=== PATIENT | female | born 1945 | race Caucasian/White ===

== ENCOUNTER → 2016-07-28 | Outpatient (CLI) | payer OTHER ==
[~2016-07-28] MED LIST: IOPAMIDOL (ISOVUE 370) 100 ML BTL IV ONE
--- NOTE | 2016-07-28 17:44 | CT ---
CT Cardiac Angiogram With Left Ventricular Ejection Fraction 1405 hours History: History of septal myomectomy and mitral valve repair. Hypertrophic cardiomyopathy.. Technique: Postprocessing was performed. Volume rendered images were reviewed and vessel analysis was performed of the coronary arteries. Dose reduction techniques were utilized. This is a repeat exam. No charge to the patient. Images were obtained on a [address] scanner. With the IV administration of 85 mL Isovue-370 IV contrast, serial axial CT images were obtained through the heart utilizing th in slice technique and retrospective gating. Full [id number] reconstructed images were used for e valuation of the extracardiac tissues. At the time of the CT, the heart rate was 75-80 bpm. Gated im aging of the heart during cardiac cycle was reconstructed. CT Cardiac Angiogram: The overall quality of the study is very good. There is adequate visualization of the coronary arteries. The patient has a right dominant system wit h normal origins of the coronary arteries. The patient has had previous coronary artery bypass graft to a diagonal branch as well as PAYTON anastomosis to the distal LAD that appear to be patent. Left main: No calcified or soft plaque is seen and there is no stenosis. Proximal LAD and first diagonal branch: There is calcified plaque involving the proximal LAD with mil d stenosis suspected measuring less than 50%. The diagonal branch is patent. Mid-distal LAD, D2 and D3 branches: Calcified plaque is also seen mid LAD with mild stenosis measur ing less than 50%. The diagonal branches appear to be patent. The anastomosis from the coronary arter y bypass graft to diagonal branch appears to be patent. The distal PAYTON graft to the distal LAD is pa tent as well. Left circumflex and its OM branches: The left circumflex artery is very small caliber. Small obtuse marginal branch is also seen. Right coronary artery and its branches: No calcified or soft plaque is seen and there is no stenosis . The distal right coronary artery continues into the PDA and posterior lateral branch. These are wid keven patent. Cardiac Function: The left ventricular ejection fraction was calculated to be approximately 79%. Str aneta-volume was calculated to be 63 mL. There is moderate left ventricular hypertrophy that is more pr ominent involving the interventricular septum measuring 25 mm at end diastole. There is concentric th ickening of the left ventricular wall during systole. Cardiac Morphology: Cardiac pacemaker leads are present in the right atrium and right ventricle. The right atrium is normal. The right ventricle is normal. The left atrium is moderately enlarged travis uring about 5.4 x 6.8 cm in AP and transverse dimensions. The left atrial appendage is normal. Mitral annulus calcification is noted. There is apical thinning of the left ventricle. Moderate slightly asymmetric left ventricular hypertrophy is noted more prominent thickening at the interventricular se ptum. The aortic valve is normal in appearance. Extracardiac soft tissues: There is no hilar or mediastinal lymphadenopathy. The pericardium is hugo l. No underlying pulmonary nodules are seen. There are a few fibrotic streaks at the left base. The a scending portion of the aortic arch is upper limits normal in size measuring about 3.8 cm. Impression: 1. Hypertrophic cardiomyopathy that is mildly asymmetric with the greatest thickening at the interven tricular septum measuring 2.5 cm during end diastole. 2. Left ventricular ejection fraction calculated to be 79%. 3. Mild to moderate arteriosclerotic calcified plaque involving the proximal to mid LAD with only mil d stenosis suspected. 4. Coronary artery bypass graft from the aorta to the diagonal branch is patent as well as PAYTON graft to the distal LAD. 5. Dominant right coronary artery with prominent PDA and posterior lateral branch distally. All measurements of stenoses are based on NASCET criteria.
== END ==
LOC: FIMAGING 13:21
PROVIDERS: ATTEND Thoracic Surgery (Cardiothoracic Vascular Surgery)
DX: I42.2 Other hypertrophic cardiomyopathy (principal); Z95.0 Presence of cardiac pacemaker; I25.10 Atherosclerotic heart disease of native coronary artery without angina pectoris; Z95.1 Presence of aortocoronary bypass graft
CPT/HCPCS: 71275; Q9967

== ENCOUNTER 2016-08-14 08:08 | Inpatient (IN) | payer OTHER ==
[2016-08-14] MEDS ORDERED: DIAZEPAM 5 MG TAB PO ONE (08:13)
[2016-08-14] MEDS ORDERED: ASPIRIN EC 325 MG TAB PO ONE (08:13)
[2016-08-14] MEDS ORDERED: diphenhydrAMINE 25 MG CAP PO ONE ×2 (08:13→09:23)
[2016-08-14] MEDS ORDERED: FAMOTIDINE 20 MG TAB PO ONE (08:13)
[2016-08-14] MEDS ORDERED: NS 1,000 ML IV ONE (08:13)
--- NOTE | 2016-08-14 08:42 | CPEKG ---
Heart Rate: 71 RR Interval: 845 P-R Interval: 166 QRSD Interval: 150 QT Interval: 496 QTC Interval: 540 P [place]: 2 QRS [place]: -20 T Wave [place]: 160 EKG Severity - ABNORMAL ECG - EKG Impression: ATRIAL-PACED COMPLEXES EKG Impression: LEFT ATRIAL ABNORMALITY EKG Impression: LEFT BUNDLE BRANCH BLOCK EKG Impression: VOLTAGE CRITERIA FOR LVH CONSIDER SEPTAL HYPERTROPHY Electronically Signed By: Darvin Sprague 14-Aug-2016 19:24:12
[2016-08-14] MEDS ORDERED: fentaNYL 100 MCG/2 ML INJ ONE (09:04)
[2016-08-14] MEDS ORDERED: LIDOCAINE 1% 30 ML SDV ONE (09:04)
[2016-08-14] MEDS ORDERED: VERAPAMIL 5 MG/2 ML VIAL ONE (09:04)
[2016-08-14] MEDS ORDERED: MIDAZOLAM 2 MG/2 ML VIAL ONE (09:04)
[2016-08-14] MEDS ORDERED: HEPARIN 10,000 UNIT/10 ML MDV ONE (09:04)
[2016-08-14] MEDS ORDERED: IOPAMIDOL (ISOVUE-370) 150 ML BTL IV ONE ×2 (09:04→10:15)
[2016-08-14 09:22] LABS: % IMMATURE GRANULYOCYTES 0.3 % (0.0-1.1); ABSOLUTE IMMATURE GRANULOCYTES 0.02 10^3/uL (0.00-0.10); ADD DIFF? NO; ADD MORPH? NO; ADD SCAN? NO; ATYPICAL LYMPHOCYTE FLAG 10 (0-99); FRAGMENT RBC FLAG 0 (0-99); HEMATOCRIT 42.9 % (38.0-47.0); HEMOGLOBIN 14.8 g/dL (12.6-16.3); LEFT SHIFT FLG 0 (0-99); LIPEMIA HEMOLYSIS FLAG 90 (0-99); MEAN CELL HEMOGLOBIN 31.3 pg (27.9-34.1); MEAN CELL HEMOGLOBIN CONCENTR. 34.5 g/dL (32.4-36.7); MEAN CELL VOLUME 90.7 fL (81.5-99.8); MEAN PLATELET VOLUME 10.4 fL (8.7-11.7); PLATELET CLUMPS FLAG 0 (0-99); PLATELET COUNT 230 10^3/uL (150-400); RED BLOOD CELL COUNT 4.73 10^6/uL (4.18-5.33); RED CELL DISTRIBUTION WIDTH 13.1 % (11.5-15.2)
[2016-08-14] MEDS ORDERED: FAMOTIDINE 20 MG TAB ONE (09:23)
[2016-08-14] MEDS ORDERED: DIAZEPAM 5 MG TAB ONE (09:23)
[2016-08-14 09:28] LABS: INR 1.13 (0.83-1.16); PROTIME(PATIENT) 14.4 SEC (12.0-15.0)
[2016-08-14 09:38] LABS: ANION GAP 12 mEq/L (8-16); CALCIUM 9.6 mg/dL (8.5-10.4); CARBON DIOXIDE 26 mEq/l (22-31); CHLORIDE 106 mEq/L (97-110); CHOLESTEROL 179 mg/dL (140-220); CHOLESTEROL/HDL RATIO 3.09 RATIO (1.00-4.44); CREATININE 0.8 mg/dL (0.6-1.0); GLOMERULAR FILTRATION RATE > 60; GLUCOSE 90 mg/dL (70-100); HIGH DENSITY LIPOPROTEIN 58 mg/dL (40-85); LDL/HDL RATIO 1.76 RATIO (1.00-3.22); LOW DENSITY LIPOPROTEIN 102 mg/dL (80-100); MAGNESIUM 2.1 mg/dL (1.6-2.3); NON-HIGH DENSITY LIPOPROTEIN 121 mg/dL (90-129); SODIUM 144 mEq/L (134-144); TRIGLYCERIDE 99 mg/dL (35-135); VERY LOW DENSITY LIPOPROTEINS 19 mg/dL (8-25)
[2016-08-14] MEDS ORDERED: ATROPINE SULFATE 1 MG/10 ML SYR ONE (10:19)
--- NOTE | 2016-08-14 11:27 | PDDXCAT ---
Diagnostic Cath Note - . Date: 08/14/16 Intervention: None C 40A Crew Chief: Dr. Darvin Sprague Indication: Diagnostic catheterization pre MVR, pre septal resection *Procedure Access: right groin Procedure: left heart catheterization, coronary angiography, left ventriculogram , right heart catheterization *Materials Left Heart Cath size: 5F Left Heart Cath materials: JL3.5, JR4.0, OBI, pigtail Right Heart Cath size: 5F Right Heart Cath materials: PWP catheter *Findings-Left Heart Catheterization LM: 7 mm in size. Bifurcates into an LAD and circumflex system. LAD: 85% proximal LAD lesion with evidence of competitive flow in the distal LAD consistent with a patent PAYTON graph. There is an 90% diagonal 2 lesion with competitive flow in the distal vessel consistent with a patent rSVG. There is evidence of systolic obstruction of septal perforators. LCX: Small (<2mm in size) with DAVID III flow throughout. No evidence of flow- limiting disease. There is a high obtuse marginal branch with maximal luminal stenosis of 30%. RCA: Dominant, ~6 mm in size. There is a large acute marginal branch. There is no evidence of flow-limiting disease with DAVID III flow throughout. rSVG: The rSVG to the diagonal 2 is widely patent with DAVID III flow. Maximal luminal stenosis of 30% (ostial) with DAVID III flow. PAYTON: The PAYTON to the distal LAD is widely patent with DAVID III flow. EDP: 26 mmHg LVEF: 70% Wall motion: Moderate to severe (3+ MR). The visualized protion of the thoracic aorta appears enlarged and the upper imits of norm,al in size. There was no evidence of aneurysm or dissection. The LV is hypercontractile with near cavity obliteration. Upon pullback there is a dagger shaped pattern with a peak systolic pressure of 199 mmHg and an aortic pressure of 118 mmHg (peak to peak of 81 mmHg accross the LVOT). The mean gradient is 47.9 mmHg. *Findings-Right Heart Catheterization RA: 15/16/13 mmHg RV: 47/10/15 mmHg PA: 43/25/33 mmHg PAOP: 25/22/21 mmHg; There are large V waves consistent with severe MR. AO: 101/65/85 mmHg CO: 5.4 L/min CI: 3.5 L/min/m^2 *Summary Complications: None Estimated blood loss: <50ml Closure method: Angioseal Assessment: There is severe outflow tract obstruction consistent with HOCM and associated MR. [place] vessel coronary artery disease as previously described with widely patent rSVG to D2 and widely patent PAYTON to the distal LAD (DAVID III flow) Patient Problems: Problems Problem Status Diagnosed Coronary artery disease Acute HOCM (hypertrophic obstructive cardiomyopathy) Acute Bradycardia Acute Left bundle branch block (LBBB) Acute Near syncope Acute - ICD10 Problem Qualifiers (1) Coronary artery disease Qualifiers: Coronary Disease-Associated Artery/Lesion type: [place] artery [place] vs. transplanted heart: [place] heart (2) HOCM (hypertrophic obstructive cardiomyopathy)
[2016-08-14] MEDS ORDERED: ATROPINE SULFATE 1 MG/10 ML SYR IVP PRN (11:46)
[2016-08-14] MEDS ORDERED: ONDANSETRON DISINTEGRATING 4 MG TAB PO PRN (11:46)
[2016-08-14] MEDS ORDERED: NS 1,000 ML IV SCH (12:00)
[2016-08-14] MEDS ORDERED: ALBUTEROL 60 PUFFS/8 GM MDI IH PRN (12:01)
--- NOTE | 2016-08-14 13:14 | US ---
Bilateral Duplex/Doppler Carotid Sonography Clinical Indications: Preop mitral valve replacement, mitral valve disease. Technique: The cervical portions of the carotid and vertebral arteries were imaged and interrogated by color and pulsed Duplex/Doppler. Spectral analysis was performed. Findings: Right Carotid: Right CCA peak systolic velocity = 72 cm/sec Right ICA peak systolic velocity = 68 cm/sec Right ECA peak systolic velocity = 71 cm/sec Right ICA/CCA systolic velocity ratio = 0.94 No flow-limiting carotid stenosis. Mild calcified plaque involving the right carotid bulb and proxima l right internal carotid artery. Left Carotid: Left CCA peak systolic velocity = 78 cm/sec Left ICA peak systolic velocity = 68 cm/sec Left ECA peak systolic velocity = 69 cm/sec Left ICA/CCA systolic velocity ratio = 0.87 No flow-limiting carotid stenosis. Mild calcified plaque involving the left carotid bulb and proximal left internal carotid artery. Vertebral Arteries: Antegrade flow is shown by pulsed Doppler of each vertebral artery. Impression: 1. No evidence of flow-limiting carotid stenosis. 2. Mild atherosclerotic plaque bilateral carotid bulbs. 3. Bilateral vertebral arteries are patent with antegrade flow. Measurement of carotid stenosis is based on velocity parameters that correlate the residual internal carotid diameter with [place] Symptomatic Carotid Endarterectomy Trial (NASCET) based stenosis levels.
--- NOTE | 2016-08-14 14:22 | PDGENHP ---
History and Physical - Chief Complaint Dyspnea, light-headedness - History of Present Illness Pt previously seen in clinic with HOCM, LVOT obstruction, GABRIEL of the mitral valve and severe-moderate MR with preserved LV function. In January 2012 pt had a CABG x2 (PAYTON-LAD, SVG-D2), septal myectomy, and MV repair with Dr. Moses Moran. Pt is here today for [facility] in preparation for a redo septal myectomy and possible redo MV repair vs replacement. The C today showed patent grafts without new significant obstructions. Since last seen, the pt states her symptoms have not worsened. She still c/o light-headedness, dyspnea, and chest pain. She denies LE edema. History Information - Allergies/Home Medication List Allergies/Adverse Reactions: amoxicillin [Amoxicillin] Allergy (Intermediate, Verified 08/12/16 15:17) Hives cefaclor [From Ceclor] Allergy (Intermediate, Verified 08/12/16 15:17) Hives levofloxacin [From Levaquin] Allergy (Intermediate, Verified 08/12/16 15:17) Rash Sulfa (Sulfonamide Antibiotics) Allergy (Intermediate, Verified 08/12/16 15:17) Rash Home Medications: Albuterol [Proventil Inhaler HFA (*)] 1 puffs IH Q4 PRN 02/01/12 [Last Taken ] Aspirin [Aspirin 81mg (*)] 81 mg PO HS 02/01/12 [Last Taken 08/13/16] Fiber Cap 1 cap PO DAILY 02/01/12 [Last Taken 08/13/16] Loratadine [Claritin 10 mg] 10 mg PO DAILY 02/01/12 [Last Taken 08/13/16] Atorvastatin Calcium [Lipitor 40 mg (*)] 40 mg PO DAILY 11/19/15 [Last Taken ] Calcium Carb W/Vit D [Calcium Carb W/Vit D 500/200 (*)] 500 mg PO BID 11/19/15 [ Last Taken 08/13/16] Latanoprost 0.005% [Xalatan 0.005% (*)] 1 drops EACHEYE HS 11/19/15 [Last Taken 08/13/16] Metoprolol Tartrate [Lopressor 25 mg (*)] 25 mg PO BID 11/19/15 [Last Taken ] Multivitamins [Multivitamin (*)] 1 each PO BID 11/19/15 [Last Taken 08/13/16] Fluticasone/Vilanterol [Breo Ellipta 100-25 Mcg INH] 1 each IH DAILY 08/14/16 [ Last Taken 08/14/16] Timolol 0.5% [TIMOPTIC 0.5% (*)] 1 drops EACHEYE DAILY 08/14/16 [Last Taken ] I have personally reviewed and updated: medical history, social history, surgical history - Past Medical History asthma, coronary artery disease, cancer, glaucoma, hypertension, hyperlipidemia - Surgical History Reports: coronary bypass surgery (2012 (CABG x2)), mastectomy (Left (2000)), pacemaker/AICD (AV PPM (11/19/15 - Sabrina)) Additional surgical history: Septal myectomy, MV repair (2011 - Moran) - Social History Smoking Status: Never smoked Alcohol Use: None Review of Systems ROS: 10pt was reviewed & negative except for what was stated in HPI & below Constitutional: Reports: no symptoms EENMT: Reports: no symptoms Cardiac: Reports: chest pain, lightheadedness. Denies: palpitations Respiratory: Reports: orthopnea, shortness of breath Gastrointestinal: Reports: abdominal pain. Denies: vomitting, nausea Muscolosketal: Reports: no symptoms Skin: Reports: no symptoms Neurological: Reports: no symptoms Physical Exam Temp Pulse Resp BP Pulse Ox 36.4 C 67 26 H 101/64 91 L 08/14/16 13:34 08/14/16 13:34 08/14/16 13:34 08/14/16 13:34 08/14/16 13:34 Constitutional: no apparent distress, appears nourished, not in pain, obese Eyes: anicteric sclera Ears, Nose, Mouth, Throat: moist mucous membranes, hearing normal, ears appear normal Cardiovascular: regular rate and rhythym, systolic murmur Respiratory: no respiratory distress, no rales or rhonchi, clear to auscultation , respiratory distress Gastrointestinal: soft, non-tender abdomen, No distension Skin: warm, normal color, mottled, other (Well-healed sternotomy/right chest PPM site/Left mastectomy ) Musculoskeletal: full muscle strength Neurologic: AAOx3 Psychiatric: interacting appropriately, not anxious, not encephalopathic, thought process linear Lab Data & Imaging Review 08/14/16 08:50 08/14/16 08:50 WBC 7.39 10^3/uL (3.80-9.50) 08/14/16 08:50 RBC 4.73 10^6/uL (4.18-5.33) 08/14/16 08:50 Hgb 14.8 g/dL (12.6-16.3) 08/14/16 08:50 Hct 42.9 % (38.0-47.0) 08/14/16 08:50 MCV 90.7 fL (81.5-99.8) 08/14/16 08:50 MCH 31.3 pg (27.9-34.1) 08/14/16 08:50 MCHC 34.5 g/dL (32.4-36.7) 08/14/16 08:50 RDW 13.1 % (11.5-15.2) 08/14/16 08:50 Plt Count 230 10^3/uL (150-400) 08/14/16 08:50 MPV 10.4 fL (8.7-11.7) 08/14/16 08:50 Neut % (Auto) 56.3 % (39.3-74.2) 08/14/16 08:50 Lymph % (Auto) 33.6 % (15.0-45.0) 08/14/16 08:50 [place] % (Auto) 7.2 % (4.5-13.0) 08/14/16 08:50 Eos % (Auto) 1.8 % (0.6-7.6) 08/14/16 08:50 Baso % (Auto) 0.8 % (0.3-1.7) 08/14/16 08:50 Nucleat RBC Rel Count 0.0 % (0.0-0.2) 08/14/16 08:50 Absolute Neuts (auto) 4.17 10^3/uL (1.70-6.50) 08/14/16 08:50 Absolute Lymphs (auto) 2.48 10^3/uL (1.00-3.00) 08/14/16 08:50 Absolute Monos (auto) 0.53 10^3/uL (0.30-0.80) 08/14/16 08:50 Absolute Eos (auto) 0.13 10^3/uL (0.03-0.40) 08/14/16 08:50 Absolute Basos (auto) 0.06 10^3/uL (0.02-0.10) 08/14/16 08:50 Absolute Nucleated RBC 0.00 10^3/uL (0-0.01) 08/14/16 08:50 Immature Gran % 0.3 % (0.0-1.1) 08/14/16 08:50 Immature Gran # 0.02 10^3/uL (0.00-0.10) 08/14/16 08:50 PT 14.4 SEC (12.0-15.0) 08/14/16 08:50 INR 1.13 (0.83-1.16) 08/14/16 08:50 Sodium 144 mEq/L (134-144) 08/14/16 08:50 Potassium 4.0 mEq/L (3.5-5.2) 08/14/16 08:50 Chloride 106 mEq/L (97-110) 08/14/16 08:50 Carbon Dioxide 26 mEq/l (22-31) 08/14/16 08:50 Anion Gap 12 mEq/L (8-16) 08/14/16 08:50 BUN 20 mg/dL (7-23) 08/14/16 08:50 Creatinine 0.8 mg/dL (0.6-1.0) 08/14/16 08:50 Estimated GFR > 60 08/14/16 08:50 Glucose 90 mg/dL (70-100) 08/14/16 08:50 Calcium 9.6 mg/dL (8.5-10.4) 08/14/16 08:50 Magnesium 2.1 mg/dL (1.6-2.3) 08/14/16 08:50 Triglycerides 99 mg/dL (35-135) 08/14/16 08:50 Cholesterol 179 mg/dL (140-220) 08/14/16 08:50 Cholesterol Risk Factr 0.5 (0.2-1.0) 08/14/16 08:50 LDL Cholesterol, Calc 102 mg/dL (80-100) H 08/14/16 08:50 LDL Risk Factor 0.6 (0.2-1.0) 08/14/16 08:50 VLDL Cholesterol 19 mg/dL (8-25) 08/14/16 08:50 Non-HDL Cholesterol 121 mg/dL (90-129) 08/14/16 08:50 HDL Cholesterol 58 mg/dL (40-85) 08/14/16 08:50 LDL/HDL Ratio 1.76 RATIO (1.00-3.22) 08/14/16 08:50 Cholesterol/HDL Ratio 3.09 RATIO (1.00-4.44) 08/14/16 08:50 Patient ABO/Rh O NEGATIVE 08/14/16 08:50 Antibody Screen NEGATIVE 08/14/16 08:50 Visualized and Interpreted Chest x-ray results: Yes Chest X-Ray results: no infiltrate Assessment & Plan Assessment: 1. HOCM/GABRIEL/Moderate-severe MR Plan: Redo septal myectomy, redo MV repair vs replacement 08/15/16 at 7:[address] Rose - Pre-op orders to be placed - NPO past midnight - Pt seen with Dr. Rose
[2016-08-14] MEDS ORDERED: diphenhydrAMINE 25 MG CAP PO PRN (15:26)
[2016-08-14] MEDS ORDERED: ACETAMINOPHEN 325 MG TAB PO PRN (15:46)
[2016-08-14] MEDS: METOPROLOL TARTRATE 25 MG TAB PO SCH (20:21)
[2016-08-14] MEDS: MULTIVITAMINS 1 EACH TAB PO SCH (20:21)
[2016-08-14] MEDS: MUPIROCIN 2% 22 GM OINT NS SCH (20:24)
[2016-08-14] MEDS ORDERED: LATANOPROST 0.005% 2.5 ML OPHT DROPS EACHEYE SCH (21:00)
[2016-08-14] MEDS ORDERED: CHLORHEXIDINE GLUC HIBICLENS 118 ML BTL TP SCH (21:00)
[2016-08-14] MEDS ORDERED: ASPIRIN 81 MG CHEWABLE TAB PO SCH (21:00)
[2016-08-14] MEDS: CALCIUM CARB W/VIT D 500 MG TAB PO SCH (22:13)
[2016-08-14] MEDS: LATANOPROST 0.005% 2.5 ML OPHT DROPS EACHEYE SCH (22:44)
[2016-08-15] MEDS: METOPROLOL TARTRATE 25 MG TAB PO SCH ×2 (00:24→11:26)
[2016-08-15] MEDS ORDERED: NOREPINEPHRINE BITARTRATE 16 MG in NS 250 ML IV ONE (06:00)
[2016-08-15] MEDS ORDERED: AMINOCAPROIC ACID 5 GM/20 ML VIAL IV ONE (06:00)
[2016-08-15] MEDS ORDERED: CITRATE DEXTROSE SOLN 500 ML BAG MISC ONE (06:00)
[2016-08-15] MEDS ORDERED: VANCOMYCIN HCL/NORMAL SALINE 250 ML IV ONE (06:00)
[2016-08-15] MEDS ORDERED: SODIUM BICARBONATE 20 MEQ, LIDOCAINE 1% 10 ML in NORMOSOL-R 1,000 ML MISC ONE (06:00)
[2016-08-15] MEDS ORDERED: VANCOMYCIN PHARMACY TO DOSE MISC ONE (06:00)
[2016-08-15] MEDS ORDERED: MANNITOL 25% 12.5 GM/50 ML VIAL IV ONE (06:00)
[2016-08-15] MEDS ORDERED: PHENYLEPHRINE HCL 50 MG in NS 250 ML IV ONE (06:00)
[2016-08-15] MEDS ORDERED: INSULIN REGULAR HUMAN 100 UNIT in NS 100 ML IV ONE (06:00)
[2016-08-15] MEDS ORDERED: NS 1,000 ML IV ONE (06:00)
[2016-08-15] MEDS ORDERED: niCARdipine/NACL 200 ML IV SCH (06:00)
[2016-08-15 06:02] LABS: ANION GAP 9 mEq/L (8-16); CALCIUM 9.1 mg/dL (8.5-10.4); CARBON DIOXIDE 24 mEq/l (22-31); CHLORIDE 110 mEq/L (97-110); CREATININE 0.7 mg/dL (0.6-1.0); GLOMERULAR FILTRATION RATE > 60; GLUCOSE 89 mg/dL (70-100); POTASSIUM 3.9 mEq/L (3.5-5.2); SODIUM 143 mEq/L (134-144)
[2016-08-15] MEDS ORDERED: ALBUMIN 5% 250 ML BOTTLE IV ONE (06:18)
[2016-08-15] MEDS ORDERED: NA BICARBONATE 50 MEQ/50 ML VIAL ONE ×3 (06:18→22:09)
[2016-08-15] MEDS ORDERED: CALCIUM CHLORIDE 1 GM/10 ML INJ ONE (06:18)
[2016-08-15] MEDS ORDERED: MILRINONE/DEXTROSE/100 ML BAG IV ONE (06:18)
[2016-08-15] MEDS ORDERED: PROTAMINE SULFATE 50 MG/5 ML VIAL IVP ONE (06:18)
[2016-08-15] MEDS ORDERED: POTASSIUM Cl (KCl) 20 MEQ/50 ML BAG IV ONE (06:18)
[2016-08-15] MEDS ORDERED: LIDOCAINE 2% 100 MG/5 ML SYR IVP ONE (06:18)
[2016-08-15] MEDS ORDERED: AMINOCAPROIC ACID 5 GM/20 ML VIAL ONE (06:18)
[2016-08-15] MEDS ORDERED: DOPamine/DEXTROSE/250 ML BAG IV ONE (06:19)
[2016-08-15] MEDS ORDERED: ADENOSINE 6 MG/2 ML VIAL ONE (06:19)
[2016-08-15] MEDS ORDERED: AMIODARONE HCL 150 MG/3 ML VIAL ONE (06:19)
[2016-08-15] MEDS ORDERED: niCARdipine/NACL/200 ML BAG IV ONE (06:19)
[2016-08-15] MEDS ORDERED: methylPREDNISolone SOD SUCC 1 GM/8 ML VIAL ONE (06:19)
[2016-08-15] MEDS ORDERED: MAGNESIUM SULFATE 1 GM/2 ML VIAL ONE (06:19)
[2016-08-15] MEDS ORDERED: ceFAZolin 1 GM VIAL ONE (06:20)
[2016-08-15] MEDS ORDERED: HEPARIN 10,000 UNIT/10 ML MDV ONE (06:20)
[2016-08-15] MEDS ORDERED: VERAPAMIL 5 MG/2 ML VIAL ONE (06:47)
[2016-08-15] MEDS ORDERED: SKIN ADHESIVE (DERMABOND) 1 EACH TP ONE (06:47)
[2016-08-15] MEDS ORDERED: PAPAVERINE HCL 60 MG/2 ML SDV ONE (06:47)
[2016-08-15] MEDS ORDERED: CITRATE DEXTROSE SOLN 500 ML BAG ONE (06:53)
[2016-08-15] MEDS ORDERED: fentaNYL 250 MCG/5 ML INJ ONE ×2 (07:23)
[2016-08-15] MEDS ORDERED: PROPOFOL/EMULSION 500 MG/50 ML BOTTLE IV ONE (07:25)
[2016-08-15] MEDS ORDERED: MIDAZOLAM 2 MG/2 ML VIAL ONE (07:31)
[2016-08-15 08:52] LABS: HEMOGLOBIN A1C 5.4 % (4.0-6.0)
[2016-08-15] MEDS ORDERED: MAGNESIUM SULF 2 GM/WATER 50 ML BAG IV ONE (10:55)
[2016-08-15] MEDS: TIMOLOL 0.5% 15 ML OPHT.BTL EACHEYE SCH (11:25)
[2016-08-15] MEDS: CALCIUM CARB W/VIT D 500 MG TAB PO SCH (11:25)
[2016-08-15] MEDS: MUPIROCIN 2% 22 GM OINT NS SCH ×2 (11:26→22:30)
[2016-08-15] MEDS: MULTIVITAMINS 1 EACH TAB PO SCH (11:26)
[2016-08-15] MEDS ORDERED: MAGNESIUM SULF 2 GM/WATER 50 ML IV ONE (12:14)
[2016-08-15] MEDS ORDERED: fentaNYL 100 MCG/2 ML INJ IVP PRN (12:14)
[2016-08-15] MEDS ORDERED: PANTOPRAZOLE SODIUM 40 MG in NS 100 ML IV ONE (12:14)
[2016-08-15] MEDS ORDERED: SODIUM CL NASAL 45 ML BTL EACHNARE PRN (12:14)
[2016-08-15] MEDS ORDERED: MAGNESIUM HYDROXIDE 30 ML UDCUP PO PRN (12:14)
[2016-08-15] MEDS ORDERED: POLYETHYLENE GLYCOL 3350 17 GM PKT PO PRN (12:14)
[2016-08-15] MEDS ORDERED: CEPACOL LOZENGE PO PRN (12:14)
[2016-08-15] MEDS ORDERED: LACTULOSE 20 GM/30 ML UDCUP PO PRN (12:14)
[2016-08-15] MEDS ORDERED: BISACODYL 10 MG SUPP PR PRN (12:14)
[2016-08-15] MEDS ORDERED: MEPERIDINE 25 MG/ML SYR IVP PRN (12:14)
[2016-08-15] MEDS ORDERED: ACETAMINOPHEN 650 MG SUPP PR PRN (12:14)
[2016-08-15] MEDS ORDERED: D50W 25 GM/50 ML SYR IVP PRN (12:14)
[2016-08-15] MEDS ORDERED: NS 1,000 ML IV SCH (12:15)
[2016-08-15] MEDS ORDERED: SUGAMMADEX SODIUM 200 MG/2 ML VIAL IVP ONE (12:21)
[2016-08-15] MEDS ORDERED: PHENYLEPHRINE HCL 100 MCG/ML SYR ONE (12:28)
[2016-08-15] MEDS ORDERED: INSULIN REGULAR HUMAN 100 UNIT in NS 100 ML IV SCH (12:30)
--- NOTE | 2016-08-15 13:13 | POSTOPPROG ---
Post Op Note Date of Operation: 08/15/16 Surgeon: Satinder Rose Shell Coremaker: Shilo Anesthesiologist: Morris Anesthesia: GET(General Endotracheal) Pre-op Diagnosis: IHSS/GABRIEL/MR/ASHD Procedure: MVR #23 [place], reoperation Findings: rheumatic MV, not repairable Inf/Abcess present in the surg proc area at time of surgery?: No EBL: 50-100 Drains: Other (3 blakes)
[2016-08-15 13:36] LABS: BASE EXCESS -3.6 mEq/L (-2.5-2.5); BICARBONATE 23 mEq/L (22-26); MEASURED OXYGEN SATURATION 90 % (92-95); PCO2 47 mmHg (34-38); PO2 66 mmHg (65-75); TCO2 24 mEq/L (23-27)
[2016-08-15 13:37] LABS: END TIDAL CO2 40; O2 CONCENTRATIION 100 % (0-100); P/F RATIO 66 RATIO
[2016-08-15 13:38] LABS: PRESSURE SUPPORT 7
--- NOTE | 2016-08-15 13:52 | DX ---
Portable Chest 13:28 History: Post open heart surgery Comparison: November 20, 2015 Findings: There is new dense left lower lobe consolidation. There is no pneumothorax. Bilateral chest tubes, a mediastinal drain, and NG tube with tip in the stomach and an ET tube with tip in the proxi mal right mainstem bronchus are noted. A right chest wall pacer device and associated bipolar pacer l gem are in stable position. There is only a single median sternotomy wire present currently along wi CABG clips. Impression: ET tube in the proximal right mainstem bronchus with left lower lobe atelectasis. Results called to Dayana, the patient's ICU nurse at 13:49 p.m..
[2016-08-15] MEDS: ALBUMIN 5% 250 ML IV PRN ×3 (13:56→23:36)
[2016-08-15] MEDS: POTASSIUM Cl (KCl) 50 ML IV PRN ×2 (13:57→14:12)
[2016-08-15] MEDS: CHLORHEXIDINE GLUCONATE 15 ML UDL PO SCH ×2 (14:08→22:31)
[2016-08-15] MEDS ORDERED: DEXMEDETOMIDINE HCL 400 MCG in NS 100 ML IV SCH (14:30)
[2016-08-15] MEDS: FAMOTIDINE 20 MG/NACL 50 ML IV SCH (14:39)
--- NOTE | 2016-08-15 15:02 | DX ---
Portable Chest 14:42 History: Recheck ET tube placement Comparison: 13:28 earlier in the day Findings: The exam is end expiratory. I'm having a difficult time identifying the ET tube tip with ce sterling, but it is probably just above the ryan.. Impression: Recommend repeat examination in inspiration. Results called to Lacie the patient's ICU nurse, at 3 p.m.
[2016-08-15] MEDS: KETOROLAC 15 MG/1 ML SDV IVP SCH ×2 (15:57→17:22)
[2016-08-15] MEDS ORDERED: ALBUMIN 5% 250 ML IV ONE ×2 (16:00→23:30)
[2016-08-15 17:12] LABS: MEAN CELL HEMOGLOBIN 32.7 pg (27.9-34.1); MEAN CELL HEMOGLOBIN CONCENTR. 34.4 g/dL (32.4-36.7); MEAN CELL VOLUME 95.3 fL (81.5-99.8); RED BLOOD CELL COUNT 2.75 10^6/uL (4.18-5.33); RED CELL DISTRIBUTION WIDTH 13.6 % (11.5-15.2)
[2016-08-15 17:20] LABS: HEMATOCRIT 26.2 % (38.0-47.0)
[2016-08-15 17:26] LABS: INR 2.5 (0.83-1.16)
[2016-08-15 17:31] LABS: PROTIME(PATIENT) 27.3 SEC (12.0-15.0)
[2016-08-15] MEDS ORDERED: WARFARIN SODIUM 2.5 MG TAB PO ONE (18:00)
--- NOTE | 2016-08-15 19:01 | GOP ---
[f rep st] OPERATIVE REPORT DATE OF OPERATION: 08/15/2016 SURGEON: Satinder Rose DO ANIME ARTIST: Yoselin Lao. ANESTHESIOLOGIST: Jeremias Caceres. This patient had undergone previous septal myectomy and coronary bypass grafting; however, she was fo und to have a gradient greater than 100 mm across her left ventricular outflow tract due to significa nt GABRIEL. She was also noted to have at least moderate mitral insufficiency and was quite symptomatic with shortness of breath and syncope. She was consented for reoperation, septal myectomy with a [facility] er extensive workup preoperatively and potential mitral valve repair. Intraoperatively, transesophag eal echo revealed high gradient, greater than 100 mm across her outflow tract due to GABRIEL with a marke dly enlarged interventricular septum. However, very consistent severe concentric left ventricular hy pertrophy with an obliterative left ventricle at end systole. Because of this on the GERALDINE, I felt bhakti t resection of the septum, even extending it down into the apex would likely be inadequate to complet keven address her problem, although that was my initial plan. PREOPERATIVE DIAGNOSIS: Idiopathic hypertrophic subaortic stenosis with significant GABRIEL and moderate to severe mitral insufficiency. POSTOPERATIVE DIAGNOSIS: Idiopathic hypertrophic subaortic stenosis with significant GABRIEL and moderat e to severe mitral insufficiency with evidence of rheumatic heart disease with rheumatic mitral valve degeneration and mild aortic insufficiency. PROCEDURE PERFORMED: Reoperation mitral valve replacement with complete resection of the valve and s ubvalvular apparatus with a #23 [place] mechanical prosthesis. FINDINGS: DESCRIPTION OF PROCEDURE: She was brought to the operating room, intubated, monitoring lines were pl aced. She was prepped and draped in sterile classical manner. Repeat median sternotomy was performe d with an oscillating saw. Marsupialization of the right side of the heart and ascending aorta was p erformed without difficulty. The previous grafts were identified and protected. The mammary was iso lated in order to place a bulldog during the procedure. She was then heparinized, cannulated with bi caval cannulas and a single aortic cannula without difficulty. Cardiopulmonary bypass was begun, and antegrade cardioplegia was administered. Despite the mild aortic insufficiency, we were able to sophie id left ventricular distention with intermittent application of that. Because of her LVH, large volu mes of cardioplegia were administered as well as systemic cooling. The plan was to look at the yrn l valve and see what the pathology was, and if it was repairable, then proceed with septal myectomy a nd partial ring repair. I then opened the right atrium. Because of the fixed nature and her severe LVH, I felt that exposure of the mitral valve would be difficult, and she already had a dual-chamber pacemaker, so I placed caval tapes and 1 through the interatrial septum, closing an ASD as well. Thi s was extended on the dome of the left atrium. It had excellent exposure of the mitral valve, and th e left atrium was quite significantly enlarged. The mitral valve appeared to be classically rheumati c with fibrosis thickening and foreshortening of the leaflet edges, and represented a very small anul us. The subvalvular apparatus was partially fused, and the chordae were thickened. For that reason, I felt that given the nature of her concentric left ventricular hypertrophy and likely irreparable m itral valve, I decided to do a mitral valve replacement that we had discussed preoperatively with a l ow-profile mechanical valve. Coumadin had been discussed at length with the patient. She was agreea ble. We then resected the entire anterior and posterior leaflet. There was significant MAC in the p osterior anulus. I unroofed that, debrided the MAC from the anulus in order to safely place a mechan ical valve. This was extended down onto the posterior left ventricular wall as well. I then placed pledgeted mattress sutures through the remaining anulus, incorporating part of the left ventricular f ree wall where the calcium was removed, and placed that through a 23 mm mechanical [place] Beto valve. This seated without difficulty. The area was copiously irrigated for any calcium debris, and CO2 wa s infused. We then tested the valve under pressure, and there was no perivalvular leak. The left at rium and the interatrial septum was closed incorporating the ASD in the closure, and then the patient was placed in Trendelenburg. The bulldog was taken off the left internal mammary artery. The cross -clamp was removed with suction on the ascending aortic vent. Spontaneous cardiac activity was noted to resume. The patient did have the indwelling dual-chamber pacemaker. We intermittently aspirated through the LV apex for any remaining air. No suction was placed across the mechanical valve becaus e of its small size. The patient was restored in sinus rhythm. We kept her in Trendelenburg until n o further air was identified. She was then easily weaned from bypass. Transesophageal echo confirme d good ventricular function with continuous of changes in the left ventricle. The valve f unctioned perfectly with the expected central regurgitation due to washing of the leaflet hinge mecha nism, but nothing perivalvular. PAs remained normal. She required no inotropes for weaning. The he jaden was then reversed with protamine. The cannula was removed and oversewn. Two ventricular pacin g wires were placed. Two pleural and 1 mediastinal drain were placed. The thymic fat and pericardiu m were attempted to be approximated; however, there was no remaining pericardium from the prior opera tion over the right ventricle. The sternum was closed in standard fashion. The patient was returned to ICU in stable condition. /[id number]/MODL
[2016-08-15] MEDS: HYDROCODONE/APAP 5/325 TAB PO PRN ×2 (19:29→23:39)
[2016-08-15] MEDS: VANCOMYCIN HCL/NORMAL SALINE 250 ML IV SCH (19:30)
[2016-08-15] MEDS ORDERED: AMIODARONE HCL 100 ML IV ONE (22:00)
[2016-08-15 22:03] LABS: BASE EXCESS -7.4 mEq/L (-2.5-2.5); BICARBONATE 18 mEq/L (22-26); HEMOGLOBIN ABG 10.9 gm/dL (12.3-15.9); IONIZED CALCIUM 1.08 MMOL/L (1.12-1.30); MEASURED OXYGEN SATURATION 95 % (92-95); PCO2 37 mmHg (34-38); PO2 84 mmHg (65-75); SODIUM ABG 145 mEq/L (137-146); TCO2 19 mEq/L (23-27)
[2016-08-15] MEDS ORDERED: NOREPINEPHRINE BITARTRATE 4 MG in D5W 500 ML IV SCH (22:30)
[2016-08-15] MEDS ORDERED: NA BICARBONATE 50 MEQ/50 ML VIAL IV ONE ×2 (22:30→23:30)
[2016-08-15] MEDS: LATANOPROST 0.005% 2.5 ML OPHT DROPS EACHEYE SCH (22:31)
[2016-08-15 22:59] LABS: BASE EXCESS -5.9 mEq/L (-2.5-2.5); BICARBONATE 19 mEq/L (22-26); MEASURED OXYGEN SATURATION 92 % (92-95); PCO2 37 mmHg (34-38); PO2 66 mmHg (65-75); TCO2 20 mEq/L (23-27)
[2016-08-15] MEDS ORDERED: NOREPINEPHRINE BITARTRATE 16 MG in D5W 250 ML IV SCH (23:00)
[2016-08-16 01:15] LABS: BASE EXCESS -5.7 mEq/L (-2.5-2.5); BICARBONATE 19 mEq/L (22-26); MEASURED OXYGEN SATURATION 93 % (92-95); PCO2 35 mmHg (34-38); PO2 69 mmHg (65-75); TCO2 20 mEq/L (23-27)
[2016-08-16] MEDS: KETOROLAC 15 MG/1 ML SDV IVP SCH ×2 (01:22→02:52)
[2016-08-16] MEDS: FAMOTIDINE 20 MG/NACL 50 ML IV SCH (01:32)
[2016-08-16] MEDS: HYDROCODONE/APAP 5/325 TAB PO PRN ×5 (01:36→20:13)
[2016-08-16] MEDS ORDERED: NA BICARBONATE 50 MEQ/50 ML VIAL IV ONE ×3 (02:00→11:00)
[2016-08-16 03:06] LABS: BASE EXCESS -4.6 mEq/L (-2.5-2.5); BICARBONATE 20 mEq/L (22-26); MEASURED OXYGEN SATURATION 95 % (92-95); PCO2 37 mmHg (34-38); PO2 82 mmHg (65-75); TCO2 21 mEq/L (23-27)
[2016-08-16] MEDS: POTASSIUM Cl (KCl) 50 ML IV PRN (03:16)
[2016-08-16 05:16] LABS: BICARBONATE 19 mEq/L (22-26); MEASURED OXYGEN SATURATION 96 % (92-95); PCO2 38 mmHg (34-38); PO2 89 mmHg (65-75); TCO2 20 mEq/L (23-27)
[2016-08-16] MEDS ORDERED: NA BICARBONATE 50 MEQ/50 ML VIAL ONE (05:32)
[2016-08-16 05:35] LABS: % IMMATURE GRANULYOCYTES 0.3 % (0.0-1.1); ABSOLUTE IMMATURE GRANULOCYTES 0.03 10^3/uL (0.00-0.10); ADD DIFF? NO; ADD MORPH? NO; ADD SCAN? NO; ATYPICAL LYMPHOCYTE FLAG 0 (0-99); FRAGMENT RBC FLAG 0 (0-99); HEMATOCRIT 37.5 % (38.0-47.0); HEMOGLOBIN 12.6 g/dL (12.6-16.3); LEFT SHIFT FLG 60 (0-99); LIPEMIA HEMOLYSIS FLAG 80 (0-99); MEAN CELL HEMOGLOBIN 30.7 pg (27.9-34.1); MEAN CELL HEMOGLOBIN CONCENTR. 33.6 g/dL (32.4-36.7); MEAN CELL VOLUME 91.5 fL (81.5-99.8); MEAN PLATELET VOLUME 11.2 fL (8.7-11.7); PLATELET CLUMPS FLAG 10 (0-99); PLATELET COUNT 72 10^3/uL (150-400); RED CELL DISTRIBUTION WIDTH 17.1 % (11.5-15.2)
[2016-08-16 05:50] LABS: ANION GAP 14 mEq/L (8-16); CALCIUM 6.8 mg/dL (8.5-10.4); CARBON DIOXIDE 20 mEq/l (22-31); CHLORIDE 118 mEq/L (97-110); CREATININE 0.7 mg/dL (0.6-1.0); GLOMERULAR FILTRATION RATE > 60; GLUCOSE 126 mg/dL (70-100); POTASSIUM 4.2 mEq/L (3.5-5.2); SODIUM 152 mEq/L (134-144)
[2016-08-16 05:53] LABS: INR 1.83 (0.83-1.16); PROTIME(PATIENT) 21.2 SEC (12.0-15.0)
[2016-08-16] MEDS ORDERED: HEPARIN 5,000 UNIT/0.5 ML SYR SC SCH (06:00)
[2016-08-16 07:18] LABS: BASE EXCESS -4.7 mEq/L (-2.5-2.5); BICARBONATE 20 mEq/L (22-26); MEASURED OXYGEN SATURATION 96 % (92-95); PCO2 39 mmHg (34-38); PO2 89 mmHg (65-75); TCO2 21 mEq/L (23-27)
--- NOTE | 2016-08-16 08:46 | DX ---
Portable Chest, Single View August 16, 2016, 6:26 a.m. Indication: Recent open-heart surgery. Follow up. Comparison: August 15, 2016. Findings: The ET tube has been removed since one day prior and left basilar aeration has improved. Th e bilateral chest tubes, right IJ central venous line, Mil[place]-Carissa catheter overlying the main pulmonar y outflow tract, epicardial pacemaker leads and right anterior chest wall dual-lead pacemaker with le ads in the right atrium and right ventricle are all unchanged. Interstitial edema and left basilar at electasis have improved yet persist. Heart is moderately enlarged. Tiny right apical pneumothorax. Impression: 1. Tiny right apical pneumothorax. 2. Improved aeration following extubation. 3. Improving yet persistent interstitial edema and left basilar atelectasis. 4. Support devices in good position.
[2016-08-16] MEDS: SENNOSIDES/DOCUSATE SODIUM TAB PO SCH ×2 (08:51→20:13)
[2016-08-16] MEDS: VANCOMYCIN HCL/NORMAL SALINE 250 ML IV SCH ×2 (08:52→20:06)
[2016-08-16] MEDS: ASPIRIN 81 MG CHEWABLE TAB PO SCH (08:52)
[2016-08-16] MEDS: MUPIROCIN 2% 22 GM OINT NS SCH ×2 (08:53→21:38)
[2016-08-16] MEDS: Fluticasone/Vilanterol [Breo Ellipta 100-25 Mcg Inh] 1 EACH IH SCH (08:54)
[2016-08-16] MEDS ORDERED: D5W 1,000 ML IV SCH (09:00)
[2016-08-16] MEDS ORDERED: ENOXAPARIN 40 MG/0.4 ML SYR SC SCH (09:00)
[2016-08-16] MEDS ORDERED: CALCIUM GLUCONATE 50 ML IV ONE (09:00)
--- NOTE | 2016-08-16 09:03 | SOAPPROG ---
SOAP Progress Note Assessment/Plan: Assessment: POD#1 Redo median sternotomy, MVR #23 StJude mechanical prosthesis, primary closure PFO, preservation patent LAD/Dx grafts and PPM leads. Sx severe IHSS with significant MR - Attributed to GABRIEL moreso than asymmetric septal hypertrophy. Mitral valve with characteristic rheumatic appearance not amenable to repair. Small annulus and LVOT best suited to mechanical prosthesis. Postop LVOT peak gradient reduced to 19. Incidental PFO closed. Antithrombotic prophylaxis with Coumadin. Target INR 2-3. Lovenox bridge for INR < 1.7. HOCM - LVEDP 26. LVEF 70%. Care with preload. BB as tolerated. ACEI if sufficient BP. Stable CAD - s/p CABG x 2 in 2012. Grafts without degenerative changes. Secondary prevention with baby ASA, BB as tolerated and statin when eating well. Presence of PPM - Hx LBBB/brittany/presyncope. DDD mode. Lower rate 60. Nl fx per postop interrogation. Predom rhythm Apaced. Acute expected blood loss with thrombocytopenia and mild coagulopathy - Stable s /p 2u PRBC. No evidence active bleeding. VTE prophylaxis as per MVR. RAD - Extubated without incident. Nebs prn until able to use home MDIs effectively. Plan: Stop levophed. Routine POD#1 orders re lines, drains, orals and mobility. Remove Vwires. D5W at 100 ml/h x 1 liter. Cont to follow q4h ABG. Replete base deficit prn. Mucomyst/albuterol nebs prn. Cont coumadin 2.5 mg today. Optimize analgesia. Baseline postop echo tomorrow. Likely can tx to PCU tomorrow. 08/16/16 08:45 Subjective: A little sore (back mainly) and a little nauseous. Is tolerating and enjoying ice chips. Objective: Vital Signs Temp Pulse Resp BP Pulse Ox 37.3 C 60 24 H 165/55 H 92 08/16/16 08:00 08/16/16 08:00 08/16/16 08:00 08/16/16 08:00 08/16/16 08:00 Laboratory Results 08/16/16 05:15 08/16/16 05:15 08/15/16 08/16/16 08/17/16 05:59 05:59 05:59 Intake Total 860 2291.2 Output Total 1575 2830 Balance -715 -538.8 PT 21.2 SEC (12.0-15.0) H 08/16/16 05:15 INR 1.83 (0.83-1.16) H 08/16/16 05:15 Extubated late yest afternoon without incident. 4 amps of bicarb for mild resp acidosis. Maintained on 2mcg levo overnoc for MAP > 70. A few short runs of NSVT o/w Apaced 60 with PAs 30s-40s/18-20s, CI > 2.2. Balanced I/Os. Moderate CTOP. Intermittent air leak. CXR-> hypoventilation, mild interstitial edema, tiny rt apical PTX. Na sl elev. INR and plts ok. Physical Exam - Physical Exam General Appearance: alert, no apparent distress Respiratory: rhonchi (diffuse w tube noise), other (Blakes x 3 y-d to pleurovac , serosang drainage, +tidal, no overt air leak w weak cough) Cardiac/Chest: regular rate, rhythm, other (Sternum grossly stable. Sternotomy CDI. 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
[2016-08-16] MEDS: LIDOCAINE 5% 1 EA PATCH TD SCH (09:17)
[2016-08-16] MEDS: TIMOLOL 0.5% 15 ML OPHT.BTL EACHEYE SCH (09:18)
[2016-08-16 09:31] LABS: BASE EXCESS -5.3 mEq/L (-2.5-2.5); BICARBONATE 20 mEq/L (22-26); MEASURED OXYGEN SATURATION 95 % (92-95); PCO2 41 mmHg (34-38); PO2 82 mmHg (65-75); TCO2 21 mEq/L (23-27)
[2016-08-16] MEDS: ALBUTEROL 3 ML DEYVIAL IH PRN ×2 (11:03→16:56)
[2016-08-16] MEDS: ACETYLCYSTEINE 10% 30 ML VIAL IH PRN ×2 (11:04→16:57)
[2016-08-16] MEDS: PANTOPRAZOLE SODIUM 40 MG TAB PO SCH (13:14)
[2016-08-16] MEDS: traMADol 50 MG TAB PO PRN ×2 (13:14→20:13)
[2016-08-16] MEDS: ONDANSETRON 4 MG/2 ML VIAL IVP PRN (13:14)
[2016-08-16 13:50] LABS: BASE EXCESS -0.2 mEq/L (-2.5-2.5); BICARBONATE 25 mEq/L (22-26); MEASURED OXYGEN SATURATION 97 % (92-95); PCO2 42 mmHg (34-38); PO2 96 mmHg (65-75); TCO2 26 mEq/L (23-27)
[2016-08-16] MEDS ORDERED: WARFARIN SODIUM 2.5 MG TAB PO ONE (16:00)
[2016-08-16 18:08] LABS: ANION GAP 4 mEq/L (8-16); CALCIUM 6.7 mg/dL (8.5-10.4); CARBON DIOXIDE 32 mEq/l (22-31); CHLORIDE 108 mEq/L (97-110); CREATININE 0.7 mg/dL (0.6-1.0); GLOMERULAR FILTRATION RATE > 60; GLUCOSE 181 mg/dL (70-100); POTASSIUM 3.9 mEq/L (3.5-5.2); SODIUM 144 mEq/L (134-144)
[2016-08-16] MEDS ORDERED: KETOROLAC 30 MG/1 ML SDV ONE (20:26)
[2016-08-16] MEDS ORDERED: KETOROLAC 30 MG/1 ML SDV IVP ONE (20:30)
[2016-08-16] MEDS: PATCH REMOVAL 1 EA PATCH TD SCH (21:38)
[2016-08-16] MEDS: LATANOPROST 0.005% 2.5 ML OPHT DROPS EACHEYE SCH (21:38)
[2016-08-16] MEDS: CALCIUM CARB W/VIT D 500 MG TAB PO SCH (21:40)
[2016-08-17] MEDS: KETOROLAC 15 MG/1 ML SDV IVP SCH ×2 (00:24→05:06)
[2016-08-17] MEDS: traMADol 50 MG TAB PO PRN ×4 (02:12→20:49)
[2016-08-17] MEDS: ACETAMINOPHEN 325 MG TAB PO PRN ×3 (02:12→20:49)
[2016-08-17] MEDS: METOCLOPRAMIDE 10 MG/2 ML VIAL IVP PRN (04:00)
[2016-08-17] MEDS: ONDANSETRON 4 MG/2 ML VIAL IVP PRN (04:00)
[2016-08-17 05:18] LABS: HEMATOCRIT 35.6 % (38.0-47.0); HEMOGLOBIN 11.9 g/dL (12.6-16.3); MEAN CELL HEMOGLOBIN 30.8 pg (27.9-34.1); MEAN CELL HEMOGLOBIN CONCENTR. 33.4 g/dL (32.4-36.7); MEAN CELL VOLUME 92.2 fL (81.5-99.8); RED BLOOD CELL COUNT 3.86 10^6/uL (4.18-5.33); RED CELL DISTRIBUTION WIDTH 17.1 % (11.5-15.2)
[2016-08-17 05:28] LABS: INR 2.33 (0.83-1.16); PROTIME(PATIENT) 25.8 SEC (12.0-15.0)
[2016-08-17 05:54] LABS: ANION GAP 5 mEq/L (8-16); CALCIUM 6.7 mg/dL (8.5-10.4); CARBON DIOXIDE 32 mEq/l (22-31); CHLORIDE 105 mEq/L (97-110); CREATININE 0.7 mg/dL (0.6-1.0); GLOMERULAR FILTRATION RATE > 60; GLUCOSE 128 mg/dL (70-100); POTASSIUM 4.1 mEq/L (3.5-5.2); SODIUM 142 mEq/L (134-144)
[2016-08-17] MEDS: ASPIRIN 81 MG CHEWABLE TAB PO SCH (08:37)
[2016-08-17] MEDS: CALCIUM CARB W/VIT D 500 MG TAB PO SCH ×2 (08:37→20:50)
[2016-08-17] MEDS: PANTOPRAZOLE SODIUM 40 MG TAB PO SCH (08:37)
[2016-08-17] MEDS: LIDOCAINE 5% 1 EA PATCH TD SCH (08:37)
[2016-08-17] MEDS: SENNOSIDES/DOCUSATE SODIUM TAB PO SCH ×2 (08:38→20:49)
[2016-08-17] MEDS: MUPIROCIN 2% 22 GM OINT NS SCH (08:38)
[2016-08-17] MEDS: TIMOLOL 0.5% 15 ML OPHT.BTL EACHEYE SCH (08:38)
[2016-08-17] MEDS: Fluticasone/Vilanterol [Breo Ellipta 100-25 Mcg Inh] 1 EACH IH SCH (08:39)
--- NOTE | 2016-08-17 08:44 | SOAPPROG ---
SOAP Progress Note Assessment/Plan: Assessment: POD#2 Redo median sternotomy, MVR #23 StJude mechanical prosthesis, primary closure PFO, preservation patent LAD/Dx grafts and PPM leads. Sx severe IHSS with significant MR - Attributed to GABRIEL moreso than asymmetric septal hypertrophy. Mitral valve with characteristic rheumatic appearance not amenable to repair. Small annulus and LVOT best suited to mechanical prosthesis. Postop LVOT peak gradient reduced to 19. Incidental PFO closed. Antithrombotic prophylaxis with Coumadin. Target INR 2-3. Therapeutic INR after 2 doses. HOCM - LVEDP 26. LVEF 70%. Care with preload. BB as tolerated. ACEI if sufficient BP. Stable CAD - s/p CABG x 2 in 2011. Grafts without degenerative changes. Secondary prevention with baby ASA, BB as tolerated and statin when eating well. Presence of PPM - Hx LBBB/brittany/presyncope. DDD mode. Lower rate 60. Nl fx per postop interrogation. Predom rhythm Apaced. Acute expected blood loss with thrombocytopenia and mild coagulopathy - Stable s /p 2u PRBC. No evidence active bleeding. VTE prophylaxis as per MVR. RAD - Extubated without incident. Nebs prn until able to use home MDIs effectively. Plan: Left pleural tube removed.. No coumadin today. Baseline postop echo. Increase activity and pulm toilet. Trial micro dose duragesic patch and Tramadol. Possible tx to PCU later today 08/17/16 08:29 Subjective: Doing ok. Woozy on Vicodin "but I need something". Tolerating short walks around room. Feels a little puffy centrally. Minimal appetite. Objective: Vital Signs Temp Pulse Resp BP Pulse Ox 36.9 C 60 14 119/50 L 100 08/16/16 20:00 08/17/16 06:00 08/17/16 06:00 08/17/16 06:00 08/17/16 06:00 Laboratory Results 08/17/16 05:05 08/17/16 05:05 08/16/16 08/17/16 08/18/16 05:59 05:59 05:59 Intake Total 2291.2 2688.6 Output Total 2830 1485 Balance -538.8 1203.6 PT 25.8 SEC (12.0-15.0) H 08/17/16 05:05 INR 2.33 (0.83-1.16) H 08/17/16 05:05 Apaced at 60. SBPs 110s. CVP 14+. Borderline MAPs d/t low diastolic pressures. UOP ok. Only pulling 250 on IS. Toradol and Vicodin for pain. CTOP decreasing. Left pl tube at removal criteria. CXR-> hypovent, min pulm vasc congestion, left basilar atelectasis, no PTX. Na normalized. INR on the rise. Plt count stable. Physical Exam - Physical Exam General Appearance: alert, no apparent distress Respiratory: crackles (bases), other (Blakes x 3 to bulb suction, thin serosang drainage. Left pleural tube stripped, then pulled without incident.) Cardiac/Chest: regular rate, rhythm (paced), other (Sternum grossly stable. 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
--- NOTE | 2016-08-17 09:27 | DX ---
Portable Chest, Single View August 16, 2016 History: Recent open heart surgery. Follow-up pulmonary status. Comparison: August 16, 2016. Findings: Postsurgical changes are seen of open heart surgery. Poor inspiratory effort with bronchova scular crowding at both lower lobes and atelectasis, similar in appearance. Bilateral chest tubes are in stable position. The tiny residual apical pneumothorax on the right is not seen on today's exam a nd appears to have resolved. [place] catheter has been removed. Cardiac pacer and two pacing leads are stable. Heart size is stable. No other significant interval change. Impression: Removal of the [place]-Carissa catheter. The tiny right apical pneumothorax appears to have res olved. Continued poor inspiratory effort with atelectasis at both lower lobes.
[2016-08-17] MEDS ORDERED: fentaNYL 12 MCG PATCH TD SCH (09:30)
[2016-08-17] MEDS: FLUTICASONE/SALMETER 100/50MCG DISKUS IH SCH ×2 (11:54→20:47)
[2016-08-17] MEDS: ALBUTEROL 3 ML DEYVIAL IH PRN ×2 (11:54→17:24)
[2016-08-17] MEDS: ACETYLCYSTEINE 10% 30 ML VIAL IH PRN ×2 (11:54→17:27)
--- NOTE | 2016-08-17 12:55 | GCON ---
[f rep st] CONSULTATION PULMONARY CONSULT DATE OF CONSULTATION: 08/17/2016 HPI: The patient is a 70-year-old female, who has hypertrophic obstructive cardiomyopathy and was french ving difficulty with that, and was admitted on 08/14/2016 for mitral valve repair due to systolic ant erior motion by Dr. Rose. The surgery itself was uncomplicated and she tolerated it well, extubated rapidly per protocol. She has not had major hemodynamic swings. A pulmonary artery catheter was le ft in place for 24 hours. This was removed. There was a small apical pneumothorax on that side that resolved spontaneously. Today, she was having more trouble breathing and not yet started her home r egimen. She has a longstanding history of asthma, has been treated with a variety of inhalers, and m ost recently started on Breo which she has not quite started yet. In terms of symptoms, she finds it difficult to cough due to pain despite using a pillow and has not been able to produce much sputum. There have been no fevers, chills, sweats, or hemoptysis over this period of time. PAST MEDICAL HISTORY: Includes hypertrophic obstructive cardiomyopathy, moderate to severe mitral re gurgitation, coronary artery disease, asthma, allergies, glaucoma, hyperlipidemia, hypertension, and remote breast cancer. PAST SURGICAL HISTORY: She has had a myomectomy in the past, mitral valve repair as described above, coronary artery bypass grafting in the past with normal coronaries on recent cath, remote mastectomy , and has a pacer, AICD, in place. CURRENT MEDICATIONS: Include Tylenol, Beatrice, Mucomyst, Proventil, Dulcolax, fentanyl patch, Toradol as needed, latanoprost, Reglan, metoprolol, Zofran, Protonix, MiraLAX, Senokot, Ultram, warfarin. EXAM: VITAL SIGNS: She was afebrile. Heart rate was 60, blood pressure 120/60, oxygen saturation 9 5% on 4 L. GENERAL: She was awake and alert, in no apparent distress and able to speak in full sen tences without using accessory muscles for breathing. HEENT: Pupils equally round and reactive to l ight. Nonicteric and noninjected. Mucous membranes are moist without erythema or exudate. NECK: S upple without adenopathy or jugular vein distention. CHEST: Incisions were clean and dry without ev idence of infection or drainage. LUNGS: Her breath sounds were coarse bilaterally without wheezes. HEART: Regular rate and rhythm. ABDOMEN: Soft, nontender, nondistended with hypoactive bowel soun ds. EXTREMITIES: Showed no clubbing, cyanosis, or edema. NEUROLOGICAL: Nonfocal, including crania l nerves and deep tendon reflexes. SKIN: Warm and dry without evidence of rash. DATA REVIEWED: Includes a white count of 7.25, hematocrit 35, platelets of 70 which have been climbi ng since surgery. INR is 2.3 today. Basic metabolic panel was unremarkable save for a bicarb of 32. Chest x-ray shows a resolved small pneumothorax. ASSESSMENT AND PLAN: 1. Respiratory failure with hypoxemia following recent mitral valve replacement. She does not appea r to be in overt heart failure and I agree that pulmonary toilet is likely to help her. She can cont inue with the Mucomyst. We have added a flutter valve as well. Though I do not think she has a alice r wheezing problem, I think that a long-acting beta agonist would be useful and she started Advair to day since Skye is not on formulary, and she should tolerate this very well. I do not feel that she h as pulmonary infection at this point and requires any other therapy other than that, certainly not sy stemic steroids. 2. Pneumothorax. This apparently was very tiny and resolved without much difficulty. 3. Mitral valve repair. She seems to be doing fairly well with that, is anticoagulated and hopefull y, will be stable for discharge from the ICU tomorrow. /[id number]/MODL
--- NOTE | 2016-08-17 15:51 | ECHO ---
[id number] + + [id number] : : [place] [id number] : : [phone] + + Adult Echocardiographic Report + -+ :Name: VIRY POLANCO CStudy Date: 08/17/2016 09:00 AM : : Hospital Admission Number: [id number] : :: 1945 Gender: Female Height: 59 in : :Age: 70 yrs Race: WH Weight: 131 lb : :Reason For Study: Baseline postop; s/p MVR #23 St Beto : : BSA: 1.5 meters 2: :History: Hx HOCM, LVOT gradient>100, 19 post MVR : + -+ MMode/2D Measurements & Calculations IVSd: 2.3 cm LVIDd: 3.2 cm FS: 49.5 % LVOT diam: 1.7 cm LVPWd: 1.4 cm LVIDs: 1.6 cm EDV(Teich): 41.9 ml LVOT area: 2.3 cm2 ESV(Teich): 7.5 ml EF(Teich): 82.0 % Normal Measurement Values: + + :LVIDd (3.5-5.7cm) IVSd (0.6-1.1cm) LVPWd (0.6-1.1cm) Aortic Root (2.0-3.7cm)Left Atrium (1.5-4.0cm): :LV Vol(d) (76-115ml) LV Vol(s) (29-48ml) Ejec Fraction (50-65%)PV Diego (0.6- 1.2m/s) TV Diego (0.4-1.0m/s) : :MV E Diego (0.8-1.0m/s)MV A Diego (0.3-1.0m/s)LVOT Diego (0.7-1.2m/s) Asc Ao Diego ( 0.9-1.8m/s) : + + Doppler Measurements & Calculations MV E max diego: MV V2 max: MV P1/2t max diego: Ao V2 max: 150.3 cm/sec 145.5 cm/sec 155.3 cm/sec 172.4 cm/sec MV A max diego: MV max PG: MV P1/2t: 69.6 msec Ao max P.9 cm/sec 8.5 mmHg MVA(P1/2t): 3.2 cm2 11.9 mmHg MV E/A: 1.6 MV V2 mean: MV dec slope: Ao mean PG: MV dec time: 90.8 cm/sec 6.5 mmHg 0.27 sec MV mean P.1 cm/sec2 Ao V2 mean: 3.8 mmHg 116.5 cm/sec MV V2 VTI: Ao V2 VTI: 34.5 cm 47.6 cm MARLENY(I,D): 1.6 cm2 MVA(VTI): 1.2 cm2 MARLENY(V,D): 1.6 cm2 LV V1 max: SV(LVOT): 56.0 ml PA V2 max: TR max diego: 124.5 cm/sec 133.7 cm/sec 254.1 cm/sec LV V1 max PG: PA max P.2 mmHg TR max P.2 mmHg 25.8 mmHg LV V1 mean P.2 mmHg LV V1 mean: 65.9 cm/sec LV V1 VTI: 24.6 cm Left Ventricle The left ventricle is normal in size. There is moderate concentric left ventricular hypertrophy. The left ventricle is hyperdynamic. Right Ventricle The right ventricle is not well visualized. There is a pacemaker lead in the right ventricle. Atria The left atrium is mildly dilated. Right atrial size is normal. Mitral Valve Pt is s/p a #23 St[employer] Beto mechanical prosthesis. The valve appears to sit and function normally. The mean gradient is 3.8 mmHg. There is no mitral regurgitation noted. Tricuspid Valve The tricuspid valve is normal in structure and function. There is no tricuspid stenosis. There is mild tricuspid regurgitation. Aortic Valve There is mild to moderate aortic valve calcification. There is no aortic stenosis. AV Max [id number], Mean PG 7. Mild aortic regurgitation. Pulmonic Valve The pulmonic valve is not well visualized. There is no pulmonic valvular stenosis. There is no pulmonic valvular regurgitation. Great Vessels The aortic root is normal size. Pericardium/Pleural There is a fat pad seen. There is no pericardial effusion. Conclusion A complete two-dimensional transthoracic echocardiogram was performed (2D, M-mode, Doppler and color flow Doppler). The study was technically difficult. The study was technically limited. 1. The left ventricle is normal in size. There is moderate concentric left ventricular hypertrophy. The left ventricle is hyperdynamic. 2. The left atrium is mildly dilated. 3. Pt is s/p a #23 St. Beto mechanical prosthesis. The valve appears to sit and function normally. The mean gradient is 3.8 mmHg. 4. There is mild to moderate aortic valve calcification. There is no aortic stenosis. There is mild aortic regurgitation. 5. Compared to the 07/02/16 study. The mitral valve has been replaced. The LVOT gradient has decreased from 102 to 6 mmHg. Final Reading Physician: Georgi Jimenez MD electronically signed on 08/17/2016 03:50 PM Ordering Physician: Yoselin Lao Performed By: Allyson Tao
[2016-08-17] MEDS: KETOROLAC 15 MG/1 ML SDV IVP PRN (18:49)
[2016-08-17] MEDS: LATANOPROST 0.005% 2.5 ML OPHT DROPS EACHEYE SCH (21:20)
[2016-08-17] MEDS: PATCH REMOVAL 1 EA PATCH TD SCH (22:00)
[2016-08-18] MEDS: KETOROLAC 15 MG/1 ML SDV IVP PRN ×3 (00:05→16:26)
[2016-08-18] MEDS: ACETAMINOPHEN 325 MG TAB PO PRN ×2 (02:18→09:02)
[2016-08-18] MEDS: traMADol 50 MG TAB PO PRN ×2 (02:19→21:01)
[2016-08-18 06:03] LABS: ANION GAP 2 mEq/L (8-16); CALCIUM 6.6 mg/dL (8.5-10.4); CARBON DIOXIDE 32 mEq/l (22-31); CHLORIDE 102 mEq/L (97-110); CREATININE 0.6 mg/dL (0.6-1.0); GLOMERULAR FILTRATION RATE > 60; GLUCOSE 97 mg/dL (70-100); POTASSIUM 4.3 mEq/L (3.5-5.2); SODIUM 136 mEq/L (134-144)
[2016-08-18 06:04] LABS: INR 2.2 (0.83-1.16); PROTIME(PATIENT) 24.6 SEC (12.0-15.0)
--- NOTE | 2016-08-18 07:04 | SOAPPROG ---
SOAP Progress Note Assessment/Plan: Assessment: POD#3 Redo median sternotomy, MVR #23 StJude mechanical prosthesis, primary closure PFO, preservation patent LAD/Dx grafts and PPM leads. Sx severe IHSS with significant MR - Attributed to GABRIEL moreso than asymmetric septal hypertrophy. Mitral valve with characteristic rheumatic appearance not amenable to repair. Small annulus and LVOT best suited to mechanical prosthesis. Incidental PFO closed. Echo yest notable for reduction in LVOT gradient from 102 to 6. Antithrombotic prophylaxis with Coumadin. Target INR 2- 3. Therapeutic INR after 2 doses. HOCM - LVEDP 26. LVEF 70%. Care with preload. BB as tolerated. ACEI if sufficient BP. Stable CAD - s/p CABG x 2 in 2011. Grafts without degenerative changes. Secondary prevention with baby ASA, BB as tolerated and statin when eating well. Presence of PPM - Hx LBBB/brittany/presyncope. DDD mode. Lower rate 60. Nl fx per postop interrogation. Predom rhythm Apaced. Acute expected blood loss with thrombocytopenia and mild coagulopathy - Stable s /p 2u PRBC. No evidence active bleeding. VTE prophylaxis as per MVR. RAD - Extubated without incident. Nebs prn until able to use home MDIs effectively. Plan: Remove rt pleural tube. Coumadin 1 mg today. Cont inc activity and aggressive pulm toilet. Tx to PCU. 08/18/16 07:01 Subjective: Improved pain control. Able to walk a bit. Breathing easier. Objective: Vital Signs Temp Pulse Resp BP Pulse Ox 37.3 C 60 18 116/42 L 94 08/18/16 04:00 08/18/16 06:00 08/18/16 06:00 08/18/16 06:00 08/18/16 06:00 Laboratory Results 08/18/16 05:40 08/18/16 05:40 08/17/16 08/18/16 08/19/16 05:59 05:59 05:59 Intake Total 2688.6 1040 Output Total 1485 1000 Balance 1203.6 40 PT 24.6 SEC (12.0-15.0) H 08/18/16 05:40 INR 2.20 (0.83-1.16) H 08/18/16 05:40 Echo yest-> hyperdynamic LV systolic fx, mild TR, mild AI, no , LVOT gradient 6. Apaced 60 w adequate SBPs. Suppl O2 req down to 2 Lpm. Balanced I/Os. Mostly serous CTOP. Rt tube at removal criteria. Labs ok. Plt beginning to rise. Physical Exam - Physical Exam General Appearance: alert, no apparent distress Respiratory: crackles (coarse, bases), other (Blakes x 2 to bulb suction, thin serosang drainage, some fibrinous stranding) Cardiac/Chest: regular rate, rhythm, other (Sternum grossly stable. 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
--- NOTE | 2016-08-18 08:21 | DX ---
Portable Chest 0611 hours History: Left chest tube. Pleural effusion. Atelectasis. Dyspnea. Comparison: Yesterday. Findings: Right chest wall pacemaker with leads in the right atrium and right ventricle. Chest tube i n the left lung base and paracardiac region. Mild cardiomegaly. Median sternotomy wires. Mitral valve replacement. Atherosclerotic aorta. Elevated right hemidiaphragm. Bilateral pulmonary edema pattern noted. No definite pneumothorax. Surgical clips in the left axillary region. Chest tube in the right lung base. Right internal jugular line in the superior vena cava. Linear atelectasis in the left lowe r lobe. Impression: 1. Multiple tubes and lines without pneumothorax. 2. Persistent pulmonary edema. 3. Linear atelectasis bilateral lower lobes with elevated right hemidiaphragm again noted.
[2016-08-18] MEDS: ASPIRIN 81 MG CHEWABLE TAB PO SCH (08:59)
[2016-08-18] MEDS: CALCIUM CARB W/VIT D 500 MG TAB PO SCH ×2 (08:59→21:01)
[2016-08-18] MEDS: LIDOCAINE 5% 1 EA PATCH TD SCH (08:59)
[2016-08-18] MEDS: PANTOPRAZOLE SODIUM 40 MG TAB PO SCH (08:59)
[2016-08-18] MEDS: TIMOLOL 0.5% 15 ML OPHT.BTL EACHEYE SCH (09:03)
[2016-08-18] MEDS: SENNOSIDES/DOCUSATE SODIUM TAB PO SCH ×2 (09:03→21:05)
[2016-08-18] MEDS: FLUTICASONE/SALMETER 100/50MCG DISKUS IH SCH ×2 (10:01→21:07)
[2016-08-18] MEDS: ONDANSETRON 4 MG/2 ML VIAL IVP PRN ×2 (12:40→16:27)
[2016-08-18] MEDS: METOCLOPRAMIDE 10 MG/2 ML VIAL IVP PRN (12:40)
[2016-08-18] MEDS ORDERED: WARFARIN SODIUM 1 MG TAB PO ONE (16:00)
[2016-08-18] MEDS: LATANOPROST 0.005% 2.5 ML OPHT DROPS EACHEYE SCH (21:03)
[2016-08-18] MEDS: PATCH REMOVAL 1 EA PATCH TD SCH (21:04)
[2016-08-19 06:43] LABS: % IMMATURE GRANULYOCYTES 0.4 % (0.0-1.1); ABSOLUTE IMMATURE GRANULOCYTES 0.03 10^3/uL (0.00-0.10); ADD DIFF? NO; ADD MORPH? NO; ADD SCAN? YES; ATYPICAL LYMPHOCYTE FLAG 0 (0-99); FRAGMENT RBC FLAG 0 (0-99); HEMATOCRIT 33.1 % (38.0-47.0); HEMOGLOBIN 11.1 g/dL (12.6-16.3); LIPEMIA HEMOLYSIS FLAG 80 (0-99); MEAN CELL HEMOGLOBIN 30.8 pg (27.9-34.1); MEAN CELL HEMOGLOBIN CONCENTR. 33.5 g/dL (32.4-36.7); MEAN CELL VOLUME 91.9 fL (81.5-99.8); MEAN PLATELET VOLUME 11.1 fL (8.7-11.7); PLATELET CLUMPS FLAG 0 (0-99); PLATELET COUNT 94 10^3/uL (150-400); RED CELL DISTRIBUTION WIDTH 15.5 % (11.5-15.2)
[2016-08-19 06:46] LABS: LEFT SHIFT FLG 300 (0-99)
[2016-08-19 06:50] LABS: INR 1.86 (0.83-1.16); PROTIME(PATIENT) 21.5 SEC (12.0-15.0)
[2016-08-19 07:09] LABS: SCAN POSITIVE
[2016-08-19 07:14] LABS: PLATELET ESTIMATE DECREASED (ADEQ); POLYCHROMASIA 2+
--- NOTE | 2016-08-19 07:52 | SOAPPROG ---
SOAP Progress Note Assessment/Plan: Assessment: POD#4 Redo median sternotomy, MVR #23 StJude mechanical prosthesis, primary closure PFO, preservation patent LAD/Dx grafts and PPM leads. 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 Mitral valve with characteristic rheumatic appearance not amenable to repair. Small annulus and LVOT best suited to mechanical prosthesis. Incidental PFO closed. Post-op Echo notable for reduction in LVOT gradient from 102 to 6. Antithrombotic prophylaxis with Coumadin. Target INR 2- 3. HOCM - LVEDP 26. LVEF 70%. Care with preload. BB as tolerated. ACEI if sufficient BP. Stable CAD - s/p CABG x 2 in 2012. Grafts without degenerative changes. Secondary prevention with baby ASA, BB as tolerated and statin when eating well. Presence of PPM - Hx LBBB/brittany/presyncope. DDD mode. Lower rate 60. Nl fx per postop interrogation. Predom rhythm Apaced. Acute expected blood loss with thrombocytopenia and mild coagulopathy - Stable s /p 2u PRBC. No evidence active bleeding. VTE prophylaxis as per MVR. RAD - Extubated without incident. Nebs prn until able to use home MDIs effectively. Subjective: Had diarrhea all night. Breathing is getting easier as well as clearing mucous. Pain well-controlled. Objective: Vital Signs Temp Pulse Resp BP Pulse Ox 36.8 C 64 20 120/46 L 96 08/19/16 07:23 08/19/16 07:23 08/19/16 07:23 08/19/16 07:23 08/19/16 07:23 Laboratory Results 08/19/16 06:15 08/18/16 05:40 08/18/16 08/19/16 08/20/16 05:59 05:59 05:59 Intake Total 1040 Output Total 1000 720 Balance 40 -720 PT 21.5 SEC (12.0-15.0) H 08/19/16 06:15 INR 1.86 (0.83-1.16) H 08/19/16 06:15 Physical Exam - Physical Exam General Appearance: WD/WN, alert, no apparent distress EENT: No scleral icterus (R), No scleral icterus (L) Neck: normal inspection Respiratory: respiratory distress (slight ), No accessory muscle use, No retractions, No splinting Cardiac/Chest: regular rate, rhythm (AP) Abdomen: non-tender, soft, No distended Skin: normal color, warm/dry Extremities: No pedal edema, No swelling Neuro/Psych: no motor/sensory deficits, alert, normal mood/affect, oriented x 3 ICD10 Worksheet Patient Problems: Problems Problem Status Diagnosed Acute blood loss anemia Acute PFO (patent foramen ovale) Acute S/P mitral valve replacement with metallic valve Acute 08/15/16 S/P patent foramen ovale closure Acute 08/15/16 Asthma Chronic Coronary artery disease Chronic HOCM (hypertrophic obstructive cardiomyopathy) Chronic Pacemaker Chronic S/P CABG x 2 Chronic 02/02/12 Severe mitral regurgitation 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
[2016-08-19] MEDS: LIDOCAINE 5% 1 EA PATCH TD SCH (09:06)
[2016-08-19] MEDS: PANTOPRAZOLE SODIUM 40 MG TAB PO SCH (09:07)
[2016-08-19] MEDS: CALCIUM CARB W/VIT D 500 MG TAB PO SCH ×2 (09:07→20:47)
[2016-08-19] MEDS: ASPIRIN 81 MG CHEWABLE TAB PO SCH (09:07)
[2016-08-19] MEDS: traMADol 50 MG TAB PO PRN (09:07)
[2016-08-19] MEDS: FLUTICASONE/SALMETER 100/50MCG DISKUS IH SCH ×2 (09:10→20:57)
[2016-08-19] MEDS: TIMOLOL 0.5% 15 ML OPHT.BTL EACHEYE SCH (09:15)
[2016-08-19] MEDS: METOPROLOL TARTRATE 25 MG TAB PO SCH ×2 (09:18→20:45)
[2016-08-19] MEDS: MULTIVITAMINS 1 EACH TAB PO SCH ×2 (09:18→20:47)
[2016-08-19] MEDS: ACETAMINOPHEN 325 MG TAB PO PRN ×2 (15:21→21:11)
[2016-08-19] MEDS ORDERED: WARFARIN SODIUM 3 MG TAB PO ONE (16:00)
[2016-08-19] MEDS: LATANOPROST 0.005% 2.5 ML OPHT DROPS EACHEYE SCH (20:47)
[2016-08-19] MEDS: PATCH REMOVAL 1 EA PATCH TD SCH (20:48)
[2016-08-20] MEDS: ACETAMINOPHEN 325 MG TAB PO PRN ×3 (06:07→20:54)
[2016-08-20 06:43] LABS: INR 1.7 (0.83-1.16)
[2016-08-20] MEDS ORDERED: AMIODARONE HCL 150 MG/100 ML BAG (1.5 MG/ML) IV ONE (08:39)
[2016-08-20] MEDS ORDERED: METOPROLOL TARTRATE 5 MG/5 ML INJ ONE (08:41)
[2016-08-20] MEDS: LIDOCAINE 5% 1 EA PATCH TD SCH (08:57)
[2016-08-20] MEDS ORDERED: METOPROLOL TARTRATE 5 MG/5 ML INJ IVP ONE (09:00)
[2016-08-20] MEDS ORDERED: LISINOPRIL 5 MG TAB PO SCH (09:00)
[2016-08-20] MEDS ORDERED: ENOXAPARIN 60 MG/0.6 ML SYR SC SCH (09:00)
[2016-08-20] MEDS ORDERED: AMIODARONE HCL 100 ML IV ONE ×2 (09:07→10:30)
[2016-08-20] MEDS: FLUTICASONE/SALMETER 100/50MCG DISKUS IH SCH ×2 (09:09→21:32)
[2016-08-20] MEDS: MULTIVITAMINS 1 EACH TAB PO SCH ×2 (09:15→20:54)
[2016-08-20] MEDS: ASPIRIN 81 MG CHEWABLE TAB PO SCH (09:15)
[2016-08-20] MEDS: CALCIUM CARB W/VIT D 500 MG TAB PO SCH ×2 (09:15→20:54)
[2016-08-20] MEDS: PANTOPRAZOLE SODIUM 40 MG TAB PO SCH (09:15)
[2016-08-20] MEDS: TIMOLOL 0.5% 15 ML OPHT.BTL EACHEYE SCH (09:19)
[2016-08-20] MEDS ORDERED: AMIODARONE HCL 200 ML IV ONE (09:25)
[2016-08-20 09:29] LABS: POTASSIUM 3.8 mEq/L (3.5-5.2)
--- NOTE | 2016-08-20 10:22 | SOAPPROG ---
SOAP Progress Note Assessment/Plan: Assessment: POD#5 Redo median sternotomy, MVR #23 StJude mechanical prosthesis, primary closure PFO, preservation patent LAD/Dx grafts and PPM leads. Sx severe IHSS with significant MR - Attributed to GABRIEL moreso than asymmetric septal hypertrophy. Mitral valve with characteristic rheumatic appearance not amenable to repair. Small annulus and LVOT best suited to mechanical prosthesis. Incidental PFO closed. Echo 08/17 notable for reduction in LVOT gradient from 102 to 6. Tubes and wires out. Antithrombotic prophylaxis with Coumadin. Target INR 2.5 (range 2.5-3.5). Lovenox bridge prn INR < 1.8. HOCM - LVEDP 26. LVEF 70%. Care with preload and tachycardia. BB as tolerated. ACEI if sufficient BP. Postop AF w RVR - Onset this am resistant to IV BB and amio bolus. 2nd bolus and electrolyte repletion in progress. No hypotension or overt sx. Cards consult if rates remain elevated. Stable CAD - s/p CABG x 2 in 2011. Grafts without degenerative changes. Secondary prevention with baby ASA, BB as tolerated and statin when eating well. Presence of PPM - Hx LBBB/brittany/presyncope. DDD mode. Lower rate 60. Nl fx per postop interrogation. Predominant rhythm remains Apaced 60. Acute expected blood loss with thrombocytopenia and mild coagulopathy - Stable s /p 2u PRBC. No evidence active bleeding. VTE prophylaxis as per MVR. RAD - Extubated without incident. Nebs prn until able to use home MDIs effectively. Plan: Amiodarone per protocol. Extra BB as allowed by BP. Lovenox 60mg BID today. Coumadin 5 mg today. Dispo - Inpt rehab ([facility]) in 2days if medically stable. 08/20/16 10:21 Subjective: Doing ok until onset of AF. Aware of "pounding sensation". A bit sweaty and uneasy. No CP, SOB or wooziness. Objective: Vital Signs Temp Pulse Resp BP Pulse Ox 36.6 C 60 15 124/53 H 94 08/20/16 07:51 08/20/16 07:51 08/20/16 07:51 08/20/16 07:51 08/20/16 07:51 Laboratory Results 08/19/16 06:15 08/20/16 09:00 08/19/16 08/20/16 08/21/16 05:59 05:59 05:59 Intake Total 1430 Output Total 720 1485 Balance -720 -55 PT 20.0 SEC (12.0-15.0) H 08/20/16 06:05 INR 1.70 (0.83-1.16) H 08/20/16 06:05 Onset of AF w RVR ~0900. Sufficient BP for IV BB. VVR after IV amio load. 2nd IV bolus and K suppl given. I/Os balanced. Renal fx stable. Ongoing downward drift in INR. - Pending Discharge Pending Discharge Within 48 Hours: Yes Pending Discharge Date: 08/22/16 Pending Discharge Time: 11:00 Physical Exam - Physical Exam General Appearance: alert, mild distress (anxious) Respiratory: lungs clear (anteriorly) Cardiac/Chest: tachycardia, irregularly irregular, other (Sternum grossly stable. 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
[2016-08-20] MEDS ORDERED: POTASSIUM CL 20 MEQ TAB PO ONE (10:30)
--- NOTE | 2016-08-20 11:27 | CPEKG ---
Heart Rate: 151 RR Interval: 397 P-R Interval: 171 QRSD Interval: 142 QT Interval: 352 QTC Interval: 559 P Highlands: 0 QRS [place]: 92 T Wave [place]: 264 EKG Severity - ABNORMAL ECG - EKG Impression: EXTREME TACHYCARDIA WITH WIDE COMPLEX, NO FURTHER RHYTHM ANALYSIS ATTEMPTED EKG Impression: PATIENT WITH HISTORY OF LBBB - PROBABLY SUPRAVENTRICULAR TACHYCARDIA Electronically Signed By: Val Alvarez 20-Aug-2016 14:37:29
[2016-08-20] MEDS: METOPROLOL TARTRATE 5 MG/5 ML INJ IVP SCH ×2 (11:44→17:10)
--- NOTE | 2016-08-20 11:53 | DX ---
Portable chest x-ray 1127 hours. History: Shortness of breath. Follow-up effusion and interstitial edema. Findings: Comparison to August 18, 2016. Heart size remains mildly enlarged. Pulmonary vasculature is mildly prominent centrally similar to th e prior study. There are some prominent perihilar interstitial markings on the left. There is also po or inspiration with increase in compressive changes at the left lung base. Rule out developing consol idation. There are no significant effusions appreciated. Central line remains in place. Pacemaker uni t is in stable position. The left-sided chest tube has been removed. Impression: 1. Poor inspiration with increase in compressive atelectatic changes at the left lung base and left p erihilar region. Rule out developing infiltrate/pneumonia. 2. Mild prominence of the pulmonary vasculature centrally although this has improved since the prior study.
[2016-08-20] MEDS: METOPROLOL TARTRATE 25 MG TAB PO SCH (11:57)
[2016-08-20] MEDS ORDERED: METOPROLOL TARTRATE 25 MG TAB PO ONE (14:46)
[2016-08-20] MEDS ORDERED: AMIODARONE HCL 540 MG in D5W 300 ML IV ONE (15:25)
[2016-08-20] MEDS ORDERED: WARFARIN SODIUM 5 MG TAB PO ONE (16:00)
[2016-08-20] MEDS: METOPROLOL TARTRATE 50 MG TAB PO SCH (20:54)
[2016-08-20] MEDS: ALBUTEROL 3 ML DEYVIAL IH PRN (21:37)
[2016-08-20] MEDS: LATANOPROST 0.005% 2.5 ML OPHT DROPS EACHEYE SCH (22:33)
[2016-08-20] MEDS: PATCH REMOVAL 1 EA PATCH TD SCH (22:34)
[2016-08-21 03:08] LABS: COLOR PALE YELLOW; LEUKOCYTE ESTERASE,URINE 2+ (NEGATIVE); NITRITE,URINE POSITIVE (NEGATIVE)
[2016-08-21 03:12] LABS: BACTERIA TRACE /hpf (NONE SEEN); WBC,URINE 25-50 /hpf (0-3)
[2016-08-21] MEDS ORDERED: STERILE WATER INJ 20 ML VIAL MISC ONE (05:00)
[2016-08-21] MEDS ORDERED: ALTEPLASE 2 MG VIAL IV ONE (05:00)
[2016-08-21] MEDS: ALTEPLASE 2 MG VIAL IV PRN ×2 (05:11→05:13)
[2016-08-21 05:31] LABS: POTASSIUM 4.5 mEq/L (3.5-5.2)
[2016-08-21] MEDS: METOPROLOL TARTRATE 50 MG TAB PO SCH ×2 (08:03→22:20)
[2016-08-21] MEDS: AMIODARONE HCL 200 MG TAB PO SCH ×2 (08:04→22:20)
[2016-08-21] MEDS: MULTIVITAMINS 1 EACH TAB PO SCH ×2 (08:05→22:19)
[2016-08-21] MEDS: ACETAMINOPHEN 325 MG TAB PO PRN ×2 (08:05→18:17)
[2016-08-21] MEDS: LIDOCAINE 5% 1 EA PATCH TD SCH (08:07)
[2016-08-21] MEDS: CALCIUM CARB W/VIT D 500 MG TAB PO SCH ×2 (08:07→22:19)
[2016-08-21] MEDS: PANTOPRAZOLE SODIUM 40 MG TAB PO SCH (08:07)
[2016-08-21] MEDS: ASPIRIN 81 MG CHEWABLE TAB PO SCH (08:07)
[2016-08-21] MEDS: TIMOLOL 0.5% 15 ML OPHT.BTL EACHEYE SCH (08:10)
--- NOTE | 2016-08-21 08:18 | SOAPPROG ---
SOAP Progress Note Assessment/Plan: Assessment: POD#6 Redo median sternotomy, MVR #23 StJude mechanical prosthesis, primary closure PFO, preservation patent LAD/Dx grafts and PPM leads. 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 Mitral valve with characteristic rheumatic appearance not amenable to repair. Small annulus and LVOT best suited to mechanical prosthesis. Incidental PFO closed. Post-op Echo notable for reduction in LVOT gradient from 102 to 6. Antithrombotic prophylaxis with Coumadin. Target INR 2- 3. HOCM - LVEDP 26. LVEF 70%. Care with preload. Continue BB. ACEI if sufficient BP. Stable CAD - s/p CABG x 2 in 2011. Grafts without degenerative changes. Secondary prevention with baby ASA, BB as tolerated and statin when eating well. Presence of PPM - Hx LBBB/brittany/presyncope. DDD mode. Lower rate 60. Nl fx per postop interrogation. Predom rhythm Apaced. Acute expected blood loss with thrombocytopenia and mild coagulopathy - Stable. VTE prophylaxis as per MVR. RAD - Extubated without incident. Nebs prn until able to use home MDIs effectively. Post-operative rapid atrial fibrillation - medically converted with amiodarone and increased BB dosage - thromboprophylaxis as per MVR UTI - dysuria, UA with bacteria/WBC - ID consulted today as pt with multi-class abx allergies Disposition - plan for SNF Thursday08/21/16 08:14 Subjective: Back pain an issue. Would like to avoid narcotics. Develops rashes from most antibiotics given in the past. Denies SOB. Objective: Vital Signs Temp Pulse Resp BP Pulse Ox 36.6 C 60 18 143/71 H 95 08/21/16 04:00 08/21/16 08:03 08/21/16 04:00 08/21/16 08:03 08/21/16 04:00 Laboratory Results 08/21/16 04:45 08/21/16 04:45 08/20/16 08/21/16 08/22/16 05:59 05:59 05:59 Intake Total 1430 1135 Output Total 1485 1050 100 Balance -55 85 -100 PT 20.0 SEC (12.0-15.0) H 08/20/16 06:05 INR 1.70 (0.83-1.16) H 08/20/16 06:05 Physical Exam - Physical Exam General Appearance: alert, no apparent distress, obese EENT: No scleral icterus (R), No scleral icterus (L) Neck: normal inspection Respiratory: No respiratory distress Cardiac/Chest: regular rate, rhythm Abdomen: soft, No non-tender, No distended Skin: normal color, warm/dry Extremities: pedal edema (+1 B/L LE) ICD10 Worksheet Patient Problems: Problems Problem Status Diagnosed Acute blood loss anemia Acute PFO (patent foramen ovale) Acute Postoperative atrial fibrillation Acute S/P mitral valve replacement with metallic valve Acute 08/15/16 S/P patent foramen ovale closure Acute 08/15/16 Asthma Chronic Coronary artery disease Chronic HOCM (hypertrophic obstructive cardiomyopathy) Chronic Pacemaker Chronic S/P CABG x 2 Chronic 02/02/12 Severe mitral regurgitation 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
[2016-08-21 08:37] LABS: INR 2.89 (0.83-1.16); PROTIME(PATIENT) 30.6 SEC (12.0-15.0)
[2016-08-21] MEDS: FLUTICASONE/SALMETER 100/50MCG DISKUS IH SCH ×2 (08:59→20:31)
[2016-08-21] MEDS ORDERED: LIDOCAINE 5% 1 EA PATCH TD SCH (09:00)
[2016-08-21] MEDS: NITROFURANTOIN MACROBID 100 MG CAP PO SCH ×2 (12:25→22:19)
--- NOTE | 2016-08-21 12:57 | GCON ---
[f rep st] CONSULTATION INFECTIOUS DISEASE DATE OF CONSULTATION: 08/21/2016 REASON FOR CONSULTATION: Multiple antibiotic allergies and catheter-associated UTI. HPI: This is a 70-year-old woman with a significant coronary history of hypertrophic cardiomyopathy, coronary artery disease, and past mitral valve replacement for underlying rheumatic disease, underwent a reoperation mitral valve replacement with complete resection of valve and subvalvular apparatus on 08/15/2016. On postoperative day 2, Coleman was removed. Since Coleman was removed , patient has had intermittent urinary symptoms including a feeling that she cannot empty her bladder completely, low urinary volumes and last night, developed dysuria and pressure. Also, this morning she felt chills and mild right-sided flank pain. Overall though, she is improving postcardiac procedure with improving appetite and energy. All chest tubes are out. Primary team obtained a urinalysis based on patient's symptomatology, which showed positive nitrite, positive leukocyte esterase, and 20-50 WBCs. ID was consulted because patient has allergies to 4 classes of antibiotics detailed below. PAST MEDICAL HISTORY: 1. Asthma. 2. Hypertrophic cardiomyopathy, status post myomectomy, no presyncope since she had a pacemaker placed earlier this year. 3. Coronary artery disease, status post CABG in 2011. 4. Breast cancer. 5. Glaucoma. 6. Hypertension. 7. Hyperlipidemia. PAST SURGICAL HISTORY: 1. CABG in 2011 with a PATYON to LAD and SVG to D2. 2. Left mastectomy in 2000. 3. Pacemaker AICD 11/19/2015. 4. Septal myomectomy and mitral valve repair in 2011. SOCIAL HISTORY: Patient has 4 children. She is , retired. No tobacco. No alcohol. FAMILY HISTORY: Positive for coronary artery disease and congestive heart failure. ALLERGIES: 1. Penicillin: In 2001, patient had a rash and hives postmastectomy. 2. Levofloxacin: She reports a blistering rash, unclear year. 3. Ceclor: Hives. 4. Bactrim: One year ago, itchy rash. MEDICATIONS: Tylenol, Mucomyst, Proventil, amiodarone 200 mg twice daily, aspirin 81 mg daily, Benadryl as needed, Toradol, latanoprost 1 drop each eye at night, Lopressor 50 mg twice daily, Zofran, Protonix, Advair, Cepacol lozenges as needed, Timoptic 1 drop each eye daily, and Coumadin REVIEW OF SYSTEMS: A complete 10-point review of systems was performed and is negative, except as mentioned in the HPI. PHYSICAL EXAM: VITAL SIGNS: Blood pressure 102/54, heart rate 60, respiratory rate 16-18, saturation 95% on 2 L, temperature 36.6. She has been afebrile throughout her hospital course. GENERAL: This is a pleasant woman lying flat in bed, no acute distress. HEENT: No conjunctival lesions. No jaundice. Oropharynx: Poor dentition. Slightly dry mucous membranes. NECK: Supple. No lymphadenopathy. CARDIOVASCULAR: Distant heart sounds. Faint systolic murmur. CHEST: She had shallow inspirations with decreased breath sounds in the base. ABDOMEN: Soft, nontender. Bowel sounds are present. No true flank pain. No suprapubic pain. EXTREMITIES: She had trace lower extremity edema. No joint swelling. SKIN: No rashes. IV ACCESS: She had a right IJ Adams still in place. LABORATORY: Urinalysis as per HPI. White count 8.2, hematocrit 33, platelets of 94 today were 175. Creatinine 0.6. Urine culture is pending. ASSESSMENT AND PLAN: This is a 70-year-old woman who recently underwent a mitral valve redo with a fairly unremarkable postoperative course, who developed urinary symptoms with a corresponding pyuria which meets the criteria for catheter-associated urinary tract infection. Patient denies urinary symptoms prior to hospitalization. Patient has hives to multiple antibiotic classes, but denies allergies to Macrobid. Past urine cultures were reviewed and do not show significant resistance. Therefore, will empirically start Macrobid 100 mg twice daily for a total of 3 days. Macrobid is not a CYP2c9 inhibitor, but other factors including modification of gut mahi and infection itself can effect INR, therefore would monitor INR more closely. Will continue to follow up and adjust antibiotics based on culture results. Thank you for this consultation. /[id number]/MODL MTDD
[2016-08-21] MEDS: PATCH REMOVAL 1 EA PATCH TD SCH (20:00)
[2016-08-21] MEDS: ONDANSETRON 4 MG/2 ML VIAL IVP PRN (20:04)
[2016-08-21] MEDS ORDERED: OXYMETAZOLINE 30 ML NASAL SPRAY EACHNARE PRN (20:20)
[2016-08-21] MEDS: LATANOPROST 0.005% 2.5 ML OPHT DROPS EACHEYE SCH (22:22)
[2016-08-22] MEDS: ACETAMINOPHEN 325 MG TAB PO PRN ×3 (05:29→17:33)
[2016-08-22 05:50] LABS: INR 2.56 (0.83-1.16); PROTIME(PATIENT) 27.8 SEC (12.0-15.0)
[2016-08-22] MEDS ORDERED: FUROSEMIDE 20 MG/2 ML VIAL IVP ONE (07:37)
[2016-08-22] MEDS: LIDOCAINE 5% 1 EA PATCH TD SCH (08:20)
[2016-08-22] MEDS: NITROFURANTOIN MACROBID 100 MG CAP PO SCH ×2 (08:22→20:54)
[2016-08-22] MEDS: METOPROLOL TARTRATE 50 MG TAB PO SCH ×2 (08:23→20:55)
[2016-08-22] MEDS: PANTOPRAZOLE SODIUM 40 MG TAB PO SCH (08:24)
[2016-08-22] MEDS: CALCIUM CARB W/VIT D 500 MG TAB PO SCH ×2 (08:24→20:55)
[2016-08-22] MEDS: LISINOPRIL 5 MG TAB PO SCH (08:25)
[2016-08-22] MEDS: AMIODARONE HCL 200 MG TAB PO SCH ×2 (08:25→20:55)
[2016-08-22] MEDS: ASPIRIN 81 MG CHEWABLE TAB PO SCH (08:25)
[2016-08-22] MEDS: MULTIVITAMINS 1 EACH TAB PO SCH ×2 (08:25→20:55)
--- NOTE | 2016-08-22 08:58 | SOAPPROG ---
SOAP Progress Note Assessment/Plan: Assessment: POD#7 Redo median sternotomy, MVR #23 StJude mechanical prosthesis, primary closure PFO, preservation patent LAD/Dx grafts and PPM leads. Sx severe IHSS with significant MR - Attributed to GABRIEL moreso than asymmetric septal hypertrophy. Mitral valve with characteristic rheumatic appearance not amenable to repair. Small annulus and LVOT best suited to mechanical prosthesis. Incidental PFO closed. Echo 08/17 notable for reduction in LVOT gradient from 102 to 6. Tubes and wires out. Antithrombotic prophylaxis with Coumadin. Target INR 2.5 (range 2.5-3.5). Lovenox bridge prn INR < 1.8. HOCM - LVEDP 26. LVEF 70%. Care with preload and tachycardia. BB as tolerated. ACEI if sufficient BP. Postop AF w RVR - Converting to usual Apaced rhythm on amiodarone and bolus BB. [id number] score of 5. Antithrombotic prophylaxis as per MVR. Postop UTI - Cx + GNR. Abx per ID given multiple allergies. Acute expected blood loss with thrombocytopenia and mild coagulopathy - Stable s /p 2u PRBC. H/H > 10/30 maintained. Platelet rebound noted. VTE prophylaxis as per MVR. Stable CAD - s/p CABG x 2 in 2011. Grafts without degenerative changes. Secondary prevention with baby ASA, BB, and statin. Presence of PPM - Hx LBBB/brittany/presyncope. DDD mode. Lower rate 60. Nl fx per postop interrogation w predominant rhythm Apaced 60. RAD - Extubated without incident. Nebs prn until able to use home MDIs effectively. Nocturnal O2 as per preop. Plan: Continue amiodarone 200 mg BID. Cont metoprolol 50 mg BID. Lasix 20mg IV x 1. Wean daytime O2. Start lisinopril 5 mg daily. Coumadin 2.5 mg today. Dispo - Inpt rehab ([facility]) in 1-2days if medically stable. 08/22/16 08:56 Subjective: Tired and breathless. Poor sleep d/t nose bleed (endorses periodic bleeds since started on nocturnal O2). Easily winded with activity. Disappointed by hospital length of stay. Objective: Vital Signs Temp Pulse Resp BP Pulse Ox 36.7 C 63 16 143/60 H 95 08/22/16 04:00 08/22/16 08:23 08/22/16 04:00 08/22/16 08:25 08/22/16 04:00 Laboratory Results 08/21/16 04:45 08/21/16 04:45 08/21/16 08/22/16 08/23/16 05:59 05:59 05:59 Intake Total 1135 1070 Output Total 1050 1725 Balance 85 -655 PT 27.8 SEC (12.0-15.0) H 08/22/16 05:30 INR 2.56 (0.83-1.16) H 08/22/16 05:30 Holding paced rhythm. Upward BP creep. Stable suppl O2 req. Balanced I/Os, still +7kg overall. Ongoing plt rebound. Therapeutic INR. Prelim urine cx +GNR Physical Exam - Physical Exam General Appearance: alert, mild distress (inc work of breathing) Respiratory: rhonchi Cardiac/Chest: regular rate, rhythm, other (Sternum grossly stable. 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
[2016-08-22] MEDS: FLUTICASONE/SALMETER 100/50MCG DISKUS IH SCH ×2 (09:31→20:28)
[2016-08-22] MEDS: TIMOLOL 0.5% 15 ML OPHT.BTL EACHEYE SCH (13:10)
[2016-08-22] MEDS ORDERED: POTASSIUM CL 20 MEQ TAB PO ONE ×2 (14:29→17:00)
[2016-08-22] MEDS ORDERED: WARFARIN SODIUM 2.5 MG TAB PO ONE (16:00)
--- NOTE | 2016-08-22 17:01 | PCMIDPN ---
Assessment/Plan: Assessment: Catheter associated urinary tract infection with multiple antibiotic allergies. Patient is on nitrofurantoin and notes that her symptoms are much improved here status post 1 day of therapy. The plan is for 3 days total of therapy. Will monitor for allergic issues. Plan: 1. Continue nitrofurantoin x3 days total 2. Follow clinical course. 3. Observe for allergic response. 08/22/16 17:39 08/22/16 17:40 Subjective: Patient is resting comfortably in her hospital room. She denies any new complaints. States that her dysuria is significantly alleviated already. No rash. Objective: Nitrofurantoin #2 Vital Signs Temp Pulse Resp BP Pulse Ox 36.6 C 70 16 123/79 H 93 08/22/16 08:00 08/22/16 12:00 08/22/16 12:00 08/22/16 12:00 08/22/16 12:00 Laboratory Results 08/21/16 04:45 08/21/16 04:45 08/21/16 08/22/16 08/23/16 05:59 05:59 05:59 Intake Total 1135 1070 Output Total 1050 1725 Balance 85 -655 - Physical Exam General Appearance: WD/WN, alert, no apparent distress, non-toxic Respiratory: lungs clear, normal breath sounds, No respiratory distress Cardiac/Chest: regular rate, rhythm, No tachycardia Skin: normal color, warm/dry, No rash Neuro/Psych: alert, normal mood/affect, oriented x 3 ICD10 Worksheet Patient Problems: Problems Problem Status Diagnosed Acute blood loss anemia Acute PFO (patent foramen ovale) Acute Postoperative atrial fibrillation Acute S/P mitral valve replacement with metallic valve Acute 08/15/16 S/P patent foramen ovale closure Acute 08/15/16 UTI (urinary tract infection), uncomplicated Acute Asthma Chronic Coronary artery disease Chronic HOCM (hypertrophic obstructive cardiomyopathy) Chronic Pacemaker Chronic S/P CABG x 2 Chronic 02/02/12 Severe mitral regurgitation 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
[2016-08-22] MEDS: ALBUTEROL 3 ML DEYVIAL IH PRN (20:33)
[2016-08-22] MEDS: LATANOPROST 0.005% 2.5 ML OPHT DROPS EACHEYE SCH (20:56)
[2016-08-22] MEDS: PATCH REMOVAL 1 EA PATCH TD SCH (21:38)
[2016-08-22] MEDS: ONDANSETRON 4 MG/2 ML VIAL IVP PRN (23:39)
[2016-08-22] MEDS: traMADol 50 MG TAB PO PRN (23:39)
[2016-08-23] MEDS: ALBUTEROL 3 ML DEYVIAL IH PRN ×3 (02:59→21:47)
[2016-08-23] MEDS: ACETAMINOPHEN 325 MG TAB PO PRN ×2 (04:35→17:28)
[2016-08-23 04:56] LABS: HEMATOCRIT 35.2 % (38.0-47.0); HEMOGLOBIN 11.5 g/dL (12.6-16.3); MEAN CELL HEMOGLOBIN 29.8 pg (27.9-34.1); MEAN CELL HEMOGLOBIN CONCENTR. 32.7 g/dL (32.4-36.7); MEAN CELL VOLUME 91.2 fL (81.5-99.8); RED BLOOD CELL COUNT 3.86 10^6/uL (4.18-5.33); RED CELL DISTRIBUTION WIDTH 15.2 % (11.5-15.2)
[2016-08-23 05:06] LABS: INR 2.97 (0.83-1.16); PROTIME(PATIENT) 31.3 SEC (12.0-15.0)
[2016-08-23 05:16] LABS: ANION GAP 7 mEq/L (8-16); CALCIUM 7.9 mg/dL (8.5-10.4); CARBON DIOXIDE 27 mEq/l (22-31); CHLORIDE 107 mEq/L (97-110); CREATININE 0.5 mg/dL (0.6-1.0); GLOMERULAR FILTRATION RATE > 60; GLUCOSE 97 mg/dL (70-100); POTASSIUM 4.3 mEq/L (3.5-5.2); SODIUM 141 mEq/L (134-144)
--- NOTE | 2016-08-23 08:02 | DX ---
Portable Chest 627 a.m. History: Dyspnea Comparison: August 20 Findings: Inspiratory phase remains poor. There is persistent retrocardiac consolidation, with increa sed density in the costophrenic angle suggesting small pleural effusions. There is no pneumothorax. A right chest wall pacer device and bipolar pacer leads, median sternotomy wire, CABG clips and valve replacement remains intact overlying the chest. Left chest wall surgical clips remain. Impression: Poor inspiration. Suspect new small pleural effusions.
[2016-08-23] MEDS ORDERED: FUROSEMIDE 20 MG/2 ML VIAL IVP ONE ×2 (08:14→09:10)
[2016-08-23] MEDS ORDERED: POTASSIUM CL 20 MEQ TAB PO ONE (08:14)
[2016-08-23] MEDS: MULTIVITAMINS 1 EACH TAB PO SCH ×2 (08:25→20:17)
[2016-08-23] MEDS: LISINOPRIL 5 MG TAB PO SCH (08:25)
[2016-08-23] MEDS: NITROFURANTOIN MACROBID 100 MG CAP PO SCH ×2 (08:25→20:17)
[2016-08-23] MEDS: CALCIUM CARB W/VIT D 500 MG TAB PO SCH ×2 (08:25→20:17)
[2016-08-23] MEDS: ASPIRIN 81 MG CHEWABLE TAB PO SCH (08:25)
[2016-08-23] MEDS: METOPROLOL TARTRATE 50 MG TAB PO SCH ×2 (08:26→20:17)
[2016-08-23] MEDS: AMIODARONE HCL 200 MG TAB PO SCH ×2 (08:26→20:17)
[2016-08-23] MEDS: PANTOPRAZOLE SODIUM 40 MG TAB PO SCH (08:26)
[2016-08-23] MEDS: LIDOCAINE 5% 1 EA PATCH TD SCH (08:27)
[2016-08-23] MEDS: TIMOLOL 0.5% 15 ML OPHT.BTL EACHEYE SCH (08:28)
[2016-08-23] MEDS: FLUTICASONE/SALMETER 100/50MCG DISKUS IH SCH ×2 (08:33→19:15)
[2016-08-23] MEDS ORDERED: METOPROLOL TARTRATE 25 MG TAB PO ONE (09:39)
--- NOTE | 2016-08-23 11:17 | SOAPPROG ---
SOAP Progress Note Assessment/Plan: Assessment: POD#8 Redo median sternotomy, MVR #23 StJude mechanical prosthesis, primary closure PFO, preservation patent LAD/Dx grafts and PPM leads. 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 Mitral valve with characteristic rheumatic appearance not amenable to repair. Small annulus and LVOT best suited to mechanical prosthesis. Incidental PFO closed. Post-op Echo notable for reduction in LVOT gradient from 102 to 6. Antithrombotic prophylaxis with Coumadin. Target INR 2- 3. HOCM - LVEDP 26. LVEF 70%. Care with preload. Continue BB/ACEI Stable CAD - s/p CABG x 2 in 2011. Grafts without degenerative changes. Secondary prevention with baby ASA, BB and statin. Presence of PPM - Hx LBBB/brittany/presyncope. DDD mode. Lower rate 60. Nl fx per postop interrogation. Predom rhythm Apaced. Acute expected blood loss with thrombocytopenia and mild coagulopathy - Stable. VTE prophylaxis as per MVR. RAD with overnight cough preventing sleeping - continue MDIs. Pulmonology asked for input for new cough. Post-operative rapid atrial fibrillation - medically converted with amiodarone and increased BB dosage - thromboprophylaxis as per MVR Gram (-) UTI - ABX as per ID. Pt symptomatically improved. Disposition - plan for SNF earliest Thursday Subjective: Cough overnight which preventing sleeping. Breathing easier since Lasix started. Objective: Vital Signs Temp Pulse Resp BP Pulse Ox 36.7 C 77 24 H 129/59 H 92 08/23/16 07:38 08/23/16 09:55 08/23/16 07:38 08/23/16 07:38 08/23/16 07:38 Microbiology 08/21/16 03:11 Urine Culture - Final Urine,Clean Catch Escherichia Coli Laboratory Results 08/23/16 04:35 08/23/16 04:35 08/22/16 08/23/16 08/24/16 05:59 05:59 05:59 Intake Total 1070 1170 Output Total 7610 3984 9525 Balance -442 -5809 -0822 PT 31.3 SEC (12.0-15.0) H 08/23/16 05:00 INR 2.97 (0.83-1.16) H 08/23/16 05:00 Physical Exam - Physical Exam General Appearance: WD/WN, alert, no apparent distress EENT: No scleral icterus (R), No scleral icterus (L) Neck: normal inspection Respiratory: respiratory distress (mild) Cardiac/Chest: other (AP) Abdomen: non-tender, soft, No distended Skin: normal color, warm/dry Extremities: pedal edema (+2 B/L) Neuro/Psych: no motor/sensory deficits, alert, normal mood/affect, oriented x 3 ICD10 Worksheet Patient Problems: Problems Problem Status Diagnosed Acute blood loss anemia Acute PFO (patent foramen ovale) Acute Postoperative atrial fibrillation Acute S/P mitral valve replacement with metallic valve Acute 08/15/16 S/P patent foramen ovale closure Acute 08/15/16 UTI (urinary tract infection), uncomplicated Acute Asthma Chronic Coronary artery disease Chronic HOCM (hypertrophic obstructive cardiomyopathy) Chronic Pacemaker Chronic S/P CABG x 2 Chronic 02/02/12 Severe mitral regurgitation 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
[2016-08-23] MEDS: ONDANSETRON 4 MG/2 ML VIAL IVP PRN ×2 (13:23→20:24)
[2016-08-23 15:16] LABS: POTASSIUM 4.3 mEq/L (3.5-5.2)
[2016-08-23] MEDS: HYDROCODONE/APAP 5/325 TAB PO PRN (20:45)
[2016-08-23] MEDS: LATANOPROST 0.005% 2.5 ML OPHT DROPS EACHEYE SCH (20:47)
[2016-08-23] MEDS: PATCH REMOVAL 1 EA PATCH TD SCH (20:48)
[2016-08-24] MEDS: ACETAMINOPHEN 325 MG TAB PO PRN ×2 (04:24→14:10)
[2016-08-24] MEDS: ALBUTEROL 3 ML DEYVIAL IH PRN ×2 (04:32→20:09)
[2016-08-24 07:25] LABS: POTASSIUM 3.7 mEq/L (3.5-5.2)
[2016-08-24 07:30] LABS: INR 2.37 (0.83-1.16); PROTIME(PATIENT) 26.1 SEC (12.0-15.0)
[2016-08-24] MEDS ORDERED: POTASSIUM CL 20 MEQ TAB PO ONE ×2 (08:22→09:14)
[2016-08-24] MEDS: AMIODARONE HCL 200 MG TAB PO SCH ×2 (08:31→20:28)
[2016-08-24] MEDS: PANTOPRAZOLE SODIUM 40 MG TAB PO SCH (08:31)
[2016-08-24] MEDS: CALCIUM CARB W/VIT D 500 MG TAB PO SCH ×2 (08:31→20:27)
[2016-08-24] MEDS: LISINOPRIL 5 MG TAB PO SCH (08:31)
[2016-08-24] MEDS: METOPROLOL TARTRATE 50 MG TAB PO SCH ×2 (08:31→20:28)
[2016-08-24] MEDS: ASPIRIN 81 MG CHEWABLE TAB PO SCH (08:31)
[2016-08-24] MEDS: MULTIVITAMINS 1 EACH TAB PO SCH ×2 (08:31→20:27)
[2016-08-24] MEDS: NITROFURANTOIN MACROBID 100 MG CAP PO SCH (08:32)
[2016-08-24] MEDS: LIDOCAINE 5% 1 EA PATCH TD SCH (08:40)
[2016-08-24] MEDS: FLUTICASONE/SALMETER 100/50MCG DISKUS IH SCH (08:41)
[2016-08-24] MEDS: TIMOLOL 0.5% 15 ML OPHT.BTL EACHEYE SCH (08:43)
--- NOTE | 2016-08-24 09:08 | DX ---
PA and Lateral Upright Views of the Chest, at 8:42 a.m. Clinical History: 70-year-old female inpatient, for postoperative follow-up. Comparison Study: Chest, dated 08/23/16, at 6:27 a.m. Findings: The dual lead right subclavian transvenous pacemaker is stable in positioning. The patient has undergone prior CABG and a cardiac valvular replacement. Numerous telemetry monitoring lead lines are present, as well as oxygen tubing. There are surgical clips in the right upper quadrant of the a bdomen and over the left axilla. The cardiac silhouette size is stable. There are mild bibasilar area s of pleural-parenchymal consolidation, consistent with atelectasis, infiltrate, and/or pleural fluid . There is atherosclerotic calcification of the aortic knob. There is mild peribronchial thickening. The pulmonary vascular congestive pattern has improved. Impression: Postoperative changes with persistent bibasilar pleuroparenchymal consolidation, but less pronounced vascular congestion.
[2016-08-24] MEDS ORDERED: FUROSEMIDE 40 MG/4 ML VIAL IVP ONE (09:14)
--- NOTE | 2016-08-24 10:38 | SOAPPROG ---
SOAP Progress Note Assessment/Plan: Assessment: POD#9 Redo median sternotomy, MVR #23 StJude mechanical prosthesis, primary closure PFO, preservation patent LAD/Dx grafts and PPM leads. 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 Mitral valve with characteristic rheumatic appearance not amenable to repair. Small annulus and LVOT best suited to mechanical prosthesis. Incidental PFO closed. Post-op Echo notable for reduction in LVOT gradient from 102 to 6. Antithrombotic prophylaxis with Coumadin. Target INR 2- 3. HOCM - LVEDP 26. LVEF 70%. Care with preload. Continue BB/ACEI/Lasix. Stable CAD - s/p CABG x 2 in 2011. Grafts without degenerative changes. Secondary prevention with baby ASA, BB and statin. Presence of PPM - Hx LBBB/brittany/presyncope. DDD mode. Lower rate 60. Nl fx per postop interrogation. Predom rhythm Apaced. Acute expected blood loss with thrombocytopenia and mild coagulopathy - Stable. VTE prophylaxis as per MVR. RAD with overnight cough preventing sleeping - continue MDIs. Pulmonology asked for input for new cough. Post-operative rapid atrial fibrillation - medically converted with amiodarone and increased BB dosage - thromboprophylaxis as per MVR Gram (-) UTI - ABX as per ID. Pt symptomatically improved. Disposition - plan for SNF earliest Thursday08/24/16 10:36 Subjective: Feels much better today. Breathing much improved. Less coughing. Objective: Vital Signs Temp Pulse Resp BP Pulse Ox 36.9 C 72 16 109/48 L 92 08/24/16 07:14 08/24/16 07:14 08/24/16 07:14 08/24/16 07:14 08/24/16 07:14 Microbiology 08/21/16 03:11 Urine Culture - Final Urine,Clean Catch Escherichia Coli Laboratory Results 08/23/16 04:35 08/24/16 06:56 08/23/16 08/24/16 08/25/16 05:59 05:59 05:59 Intake Total 1170 1140 Output Total 2250 417 600 Balance -5427 -2766 -600 PT 26.1 SEC (12.0-15.0) H 08/24/16 06:56 INR 2.37 (0.83-1.16) H 08/24/16 06:56 Physical Exam - Physical Exam General Appearance: WD/WN, alert, no apparent distress EENT: No scleral icterus (R), No scleral icterus (L) Neck: normal inspection Respiratory: No respiratory distress, No accessory muscle use, No retractions Cardiac/Chest: regular rate, rhythm Abdomen: non-tender, soft, No distended Skin: normal color, warm/dry Extremities: pedal edema (+1 b/l LE), No swelling Neuro/Psych: no motor/sensory deficits, alert, normal mood/affect, oriented x 3 ICD10 Worksheet Patient Problems: Problems Problem Status Diagnosed Acute blood loss anemia Acute PFO (patent foramen ovale) Acute Postoperative atrial fibrillation Acute S/P mitral valve replacement with metallic valve Acute 08/15/16 S/P patent foramen ovale closure Acute 08/15/16 UTI (urinary tract infection), uncomplicated Acute Asthma Chronic Coronary artery disease Chronic HOCM (hypertrophic obstructive cardiomyopathy) Chronic Pacemaker Chronic S/P CABG x 2 Chronic 02/02/12 Severe mitral regurgitation 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
[2016-08-24] MEDS: ONDANSETRON 4 MG/2 ML VIAL IVP PRN (14:08)
[2016-08-24 14:36] LABS: POTASSIUM 4.1 mEq/L (3.5-5.2)
[2016-08-24] MEDS ORDERED: WARFARIN SODIUM 3 MG TAB PO ONE (16:00)
--- NOTE | 2016-08-24 17:23 | PDINTPN ---
Balance Staff Inspector Progress Note Assessment/Plan: Assessment: Cough: Improving with diuresis. May be due to combination of some atelectasis , asthma, and upper airway irritation due to intubation. Plan: Increase Advair to 500 BID. Continue nebs and Incentive elda. 08/24/16 17:22 Subjective: The patient reports a cough that has been present since surgery. She feels that it is improving daily. It is productive of small amount of sputum. It is worse at night, but does occur somewhat during the day. It is triggered by taking a deep breath. She thinks the Lasix has helped, and also feels that the nebulized bronchodilators help. Objective: Vital Signs Temp Pulse Resp BP Pulse Ox 36.3 C 67 17 125/62 H 92 08/24/16 15:52 08/24/16 15:52 08/24/16 15:52 08/24/16 15:52 08/24/16 15:52 Laboratory Results 08/23/16 04:35 08/24/16 14:15 08/23/16 08/24/16 08/25/16 05:59 05:59 05:59 Intake Total 1170 1140 840 Output Total 2250 4175 1050 Balance -1080 -3035 -210 PT 26.1 SEC (12.0-15.0) H 08/24/16 06:56 INR 2.37 (0.83-1.16) H 08/24/16 06:56 CXR: Mild basilar atelectasis. Improved vascular congestion. Images reviewed. Physical Exam - Physical Exam General Appearance: alert, no apparent distress EENT: normal ENT inspection Neck: normal inspection Respiratory: crackles (bases) Cardiac/Chest: regular rate, rhythm, No edema Abdomen: normal bowel sounds, non-tender, soft Skin: normal color, warm/dry Extremities: normal inspection Neuro/Psych: alert, normal mood/affect, oriented x 3 ICD10 Worksheet Patient Problems: Problems Problem Status Diagnosed Acute blood loss anemia Acute PFO (patent foramen ovale) Acute Postoperative atrial fibrillation Acute S/P mitral valve replacement with metallic valve Acute 08/15/16 S/P patent foramen ovale closure Acute 08/15/16 UTI (urinary tract infection), uncomplicated Acute Asthma Chronic Coronary artery disease Chronic HOCM (hypertrophic obstructive cardiomyopathy) Chronic Pacemaker Chronic S/P CABG x 2 Chronic 02/02/12 Severe mitral regurgitation 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
[2016-08-24] MEDS: BENZONATATE 100 MG CAP PO PRN (18:36)
[2016-08-24] MEDS: FLUTICASONE/SALMETER 500/50MCG DISKUS IH SCH (20:09)
[2016-08-24] MEDS: HYDROCODONE/APAP 5/325 TAB PO PRN (20:28)
[2016-08-24] MEDS: PATCH REMOVAL 1 EA PATCH TD SCH (20:30)
[2016-08-24] MEDS: LATANOPROST 0.005% 2.5 ML OPHT DROPS EACHEYE SCH (20:31)
[2016-08-25] MEDS: traMADol 50 MG TAB PO PRN (00:04)
[2016-08-25] MEDS: HYDROCODONE/APAP 5/325 TAB PO PRN (00:05)
[2016-08-25] MEDS: BENZONATATE 100 MG CAP PO PRN (05:11)
[2016-08-25] MEDS: ACETAMINOPHEN 325 MG TAB PO PRN ×2 (08:21→14:01)
[2016-08-25] MEDS: LIDOCAINE 5% 1 EA PATCH TD SCH (08:21)
[2016-08-25] MEDS ORDERED: ATORVASTATIN CALCIUM 40 MG TAB PO SCH (09:00)
[2016-08-25] MEDS: PANTOPRAZOLE SODIUM 40 MG TAB PO SCH (09:28)
[2016-08-25] MEDS: AMIODARONE HCL 200 MG TAB PO SCH (09:30)
[2016-08-25] MEDS: ASPIRIN 81 MG CHEWABLE TAB PO SCH (09:30)
[2016-08-25] MEDS: LISINOPRIL 5 MG TAB PO SCH (09:31)
[2016-08-25] MEDS: METOPROLOL TARTRATE 50 MG TAB PO SCH (09:33)
[2016-08-25] MEDS: CALCIUM CARB W/VIT D 500 MG TAB PO SCH (09:34)
[2016-08-25] MEDS: MULTIVITAMINS 1 EACH TAB PO SCH (09:34)
[2016-08-25] MEDS: TIMOLOL 0.5% 15 ML OPHT.BTL EACHEYE SCH (09:36)
[2016-08-25] MEDS: ALBUTEROL 3 ML DEYVIAL IH PRN (10:05)
[2016-08-25] MEDS: FLUTICASONE/SALMETER 500/50MCG DISKUS IH SCH (10:08)
[2016-08-25 10:36] LABS: INR 2.39 (0.83-1.16); PROTIME(PATIENT) 26.3 SEC (12.0-15.0)
--- NOTE | 2016-08-25 11:42 | PDIAF ---
- Diagnosis Diagnosis: s/p MV replacement (mechanical) Code Status: Full Code - Medication Management Discharge Medications: Medications to Continue on Transfer Albuterol [Proventil Inhaler HFA (*)] 1 puffs IH Q4 PRN 02/01/12 [Last Taken ] Aspirin [Aspirin 81mg (*)] 81 mg PO HS 02/01/12 [Last Taken 08/13/16] Fiber Cap 1 cap PO DAILY 02/01/12 [Last Taken 08/13/16] Loratadine [Claritin 10 mg] 10 mg PO DAILY 02/01/12 [Last Taken 08/13/16] Atorvastatin Calcium [Lipitor 40 mg (*)] 40 mg PO DAILY 11/19/15 [Last Taken ] Calcium Carb W/Vit D [Calcium Carb W/Vit D 500/200 (*)] 500 mg PO BID 11/19/15 [ Last Taken 08/13/16] Latanoprost 0.005% [Xalatan 0.005% (*)] 1 drops EACHEYE HS 11/19/15 [Last Taken 08/13/16] Multivitamins [Multivitamin (*)] 1 each PO BID 11/19/15 [Last Taken 08/13/16] Timolol 0.5% [TIMOPTIC 0.5% (*)] 1 drops EACHEYE DAILY 08/14/16 [Last Taken ] Acetaminophen [Tylenol 325mg (*)] 325 - 650 mg PO Q4HRS PRN #0 tab 08/25/16 [ Last Taken Unknown] Amiodarone HCl [Pacerone (*)] 200 mg PO BID #0 tab 08/25/16 [Last Taken Unknown] Benzonatate [Tessalon Pearles] 100 mg PO TID PRN #0 cap 08/25/16 [Last Taken Unknown] Fluticasone/Salmeter 500/50Mcg [Advair 500/50 (*)] 1 puffs IH BID #0 disk [Last Taken Unknown] Hydrocodone/APAP 5/325 [[place] 5/325 (*)] 1 tab PO Q4HRS PRN #0 tab 08/25/16 [ Last Taken Unknown] Lidocaine 5% [Lidoderm 5% Patch (*)] 2 ea TD DAILY #0 patch 08/25/16 [Last Taken Unknown] Lisinopril [Zestril 5 mg (*)] 5 mg PO DAILY #0 tab 08/25/16 [Last Taken Unknown] Metoprolol Tartrate [Lopressor 50 mg (*)] 75 mg PO BID #0 tab 08/25/16 [Last Taken Unknown] Warfarin Sodium [Coumadin 5MG (*)] 4 mg PO ONCE@16 #0 tab 08/25/16 [Last Taken Unknown] diphenhydrAMINE [Benadryl 25 MG (*)] 25 mg PO HS PRN #0 cap 08/25/16 [Last Taken Unknown] Discharge Medications: Refer to the Discharge Home Medication list for PRN reason. PICC Care - Routine: N/A - Orders Services needed: Registered Nurse, Physical Therapy, Occupational Therapy Oxygen: 2L NC Diet Recommendation: cardiac -low fat low salt, fluid restriction (use comment for amount) (2 Liters) Diet Texture: Regular Texture Diet Weigh Patient: daily Coleman: No Wound Care Instructions: - Leave wounds open to air. - Wash wounds daily with soap and water. - No ointments/creams on wounds Activity/Weight Bearing Restrictions: Sternal precautions x 4 weeks. Avoid lifting > 10lbs with an outstretched arm. Avoid push/pull activities. Elevate lower extremities when sitting Additional: Call [facility] for overnight weight gain > 2lbs, weekly gain > 5lbs or worsening leg swelling. Call [facility] for resting heart rate > 120 or < 60 OR for systolic blood pressure consistently < 90 or > 150. Target oxygen saturation > 89%. - Labs/Radiology BMP Date: 09/01/16 CBC Date: 09/01/16 PT/INR Date: 09/01/16 Call or Fax Lab and Imaging Results to: [facility], attention Waleska Gutiérrez RN ([phone]) - Follow Up Care Current Providers and Referrals: Curry Boogie MD [Primary Care Provider] - Satinder Rose DO [Doctor of Osteopathy] - 09/02/16 1:15 pm Georgi Jimenez MD [Medical Doctor] - follow up in 2 weeks
[2016-08-25] MEDS ORDERED: FUROSEMIDE 40 MG TAB PO SCH (12:00)
[2016-08-25] MEDS ORDERED: POTASSIUM CL 20 MEQ TAB PO SCH (12:00)
--- NOTE | 2016-08-25 12:01 | PDIAF ---
- Diagnosis Diagnosis: s/p MV replacement (mechanical) Code Status: Full Code - Medication Management Discharge Medications: Medications to Continue on Transfer Albuterol [Proventil Inhaler HFA (*)] 1 puffs IH Q4 PRN 02/01/12 [Last Taken ] Aspirin [Aspirin 81mg (*)] 81 mg PO HS 02/01/12 [Last Taken 08/13/16] Fiber Cap 1 cap PO DAILY 02/01/12 [Last Taken 08/13/16] Loratadine [Claritin 10 mg] 10 mg PO DAILY 02/01/12 [Last Taken 08/13/16] Atorvastatin Calcium [Lipitor 40 mg (*)] 40 mg PO DAILY 11/19/15 [Last Taken ] Calcium Carb W/Vit D [Calcium Carb W/Vit D 500/200 (*)] 500 mg PO BID 11/19/15 [ Last Taken 08/13/16] Latanoprost 0.005% [Xalatan 0.005% (*)] 1 drops EACHEYE HS 11/19/15 [Last Taken 08/13/16] Multivitamins [Multivitamin (*)] 1 each PO BID 11/19/15 [Last Taken 08/13/16] Timolol 0.5% [TIMOPTIC 0.5% (*)] 1 drops EACHEYE DAILY 08/14/16 [Last Taken ] Acetaminophen [Tylenol 325mg (*)] 325 - 650 mg PO Q4HRS PRN #0 tab 08/25/16 [ Last Taken Unknown] Amiodarone HCl [Pacerone (*)] 200 mg PO BID #0 tab 08/25/16 [Last Taken Unknown] Benzonatate [Tessalon Pearles] 100 mg PO TID PRN #0 cap 08/25/16 [Last Taken Unknown] Fluticasone/Salmeter 500/50Mcg [Advair 500/50 (*)] 1 puffs IH BID #0 disk [Last Taken Unknown] Furosemide [Lasix 40 MG (*)] 40 mg PO DAILY #0 tab 08/25/16 [Last Taken Unknown] Hydrocodone/APAP 5/325 [[place] 5/325 (*)] 1 tab PO Q4HRS PRN #0 tab 08/25/16 [ Last Taken Unknown] Lidocaine 5% [Lidoderm 5% Patch (*)] 2 ea TD DAILY #0 patch 08/25/16 [Last Taken Unknown] Lisinopril [Zestril 5 mg (*)] 5 mg PO DAILY #0 tab 08/25/16 [Last Taken Unknown] Metoprolol Tartrate [Lopressor 50 mg (*)] 75 mg PO BID #0 tab 08/25/16 [Last Taken Unknown] Potassium Cl [Klor-Con 20 meq (*)] 20 meq PO DAILY #0 tab 08/25/16 [Last Taken Unknown] Warfarin Sodium [Coumadin 5MG (*)] 4 mg PO ONCE@16 #0 tab 08/25/16 [Last Taken Unknown] diphenhydrAMINE [Benadryl 25 MG (*)] 25 mg PO HS PRN #0 cap 08/25/16 [Last Taken Unknown] Discharge Medications: Refer to the Discharge Home Medication list for PRN reason. PICC Care - Routine: N/A - Orders Services needed: Registered Nurse, Physical Therapy, Occupational Therapy Oxygen: 2L NC Diet Recommendation: cardiac -low fat low salt, fluid restriction (use comment for amount) (2 Liters) Diet Texture: Regular Texture Diet Weigh Patient: daily Coleman: No Wound Care Instructions: - Leave wounds open to air. - Wash wounds daily with soap and water. - No ointments/creams on wounds Activity/Weight Bearing Restrictions: Sternal precautions x 4 weeks. Avoid lifting > 10lbs with an outstretched arm. Avoid push/pull activities. Elevate lower extremities when sitting Additional: INR needs to be measure daily with goal 2.5 - 3.5. Please have MD adjust Coumadin accordingly. Call [facility] for overnight weight gain > 2lbs, weekly gain > 5lbs or worsening leg swelling. Call [facility] for resting heart rate > 120 or < 60 OR for systolic blood pressure consistently < 90 or > 150. Target oxygen saturation > 89%. - Labs[facility]Radiology [phone][facility] CBC Date: 09/01/[facility][phone][facility] PT/INR Date: 09/01/16 (joby Hernandez RN ([phone])) Imaging Orders: Pt to have CXR as per Rx done at [facility] prior to appointment. Call or Fax Lab and Imaging Results to: joby Hernandez RN ([phone]) - Follow Up Care Current Providers and Referrals: Curry Boogie MD [Primary Care Provider] - Satinder Rose DO [Doctor of Osteopathy] - 09/02/16 1:15 pm Georgi Jimenez MD [Medical Doctor] - follow up in 2 weeks
[2016-08-25 13:48] VITALS: BP 118/55; PULSE 70; RESP 17; TEMP 97.6; O2SAT 93
[2016-08-25] MEDS ORDERED: WARFARIN SODIUM 4 MG TAB PO ONE (16:00)
--- NOTE | 2016-08-26 15:36 | PDDCSUM ---
Discharge Summary Discharge Summary: ADMISSION DATE: 08/14/16 DISCHARGE DATE: 08/25/16 ADMISSION DX: 1. 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 Left-ventricular outflow tract obstruction DISCHARGE DX: 1. 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 Left-ventricular outflow tract obstruction 3. Rheumatic heart disease with mitral valve degeneration 4. Mild aortic insufficiency 5. Paroxysmal atrial fibrillation. 6. Urinary tract infection SECONDARY DX: 1. Hypertension 2. Hyperlipidemia 3. CAD 4. h/o CABG and septal myectomy (January 2012) 5. Asthma 6. Glaucoma CONSULTS: 1. Pulmonology/Critical care: Cliff Minor PROCEDURES: 08/15/16, Satinder Rose: 1. Reoperation mitral valve replacement with complete resection of the valve and subvalvular apparatus with a #23 [employer] mechanical prosthesis HPI: Pt with prior CABG and septal myectomy with active c/o SOB and syncope. Pt was found to have moderate-severe mitral insufficiency with high gradients across her left ventricular outflow tract due to GABRIEL of the mitral valve. HOSPITAL COURSE: The patient underwent the procedures above and was transferred to the ICU in stable condition. She spent several days recovering on the floor. She developed atrial fibrillation which converted to SR with medical management. Due to her hypertropic cardiomyopathy diuretics were slowly introduced. When her fluid status and anticoagulation were optimized she was transferred to [facility] in [place] for further care. CONDITION - Good DISPOSITION: - [facility] ACTIVITY: Pt was instructed on sternal precautions, activity limitations, and which problems to call [facility] with. Please see Discharge Plan in chart for specifics. D/C MEDICATIONS: 1. Albuterol [Proventil Inhaler HFA (*)] 1 puffs IH Q4 PRN 2. Aspirin [Aspirin 81mg (*)] 81 mg PO HS 3. Fiber Cap 1 cap PO DAILY 4. Loratadine [Claritin 10 mg] 10 mg PO DAILY 5. Atorvastatin Calcium [Lipitor 40 mg (*)] 40 mg PO DAILY 6. Calcium Carb W/Vit D [Calcium Carb W/Vit D 500/200 (*)] 500 mg PO BID 7. Latanoprost 0.005% [Xalatan 0.005% (*)] 1 drops EACHEYE HS 8. Multivitamins [Multivitamin (*)] 1 each PO BID 9. Timolol 0.5% [TIMOPTIC 0.5% (*)] 1 drops EACHEYE DAILY 10. Acetaminophen [Tylenol 325mg (*)] 325 - 650 mg PO Q4HRS PRN 11. Amiodarone HCl [Pacerone (*)] 200 mg PO BID 12. Benzonatate [Tessalon Pearles] 100 mg PO TID PRN 13. Fluticasone/Salmeter 500/50Mcg [Advair 500/50 (*)] 1 puffs IH BID 14. Furosemide [Lasix 40 MG (*)] 40 mg PO DAILY #0 15. Hydrocodone/APAP 5/325 [[place] 5/325 (*)] 1 tab PO Q4HRS PRN 16. Lidocaine 5% [Lidoderm 5% Patch (*)] 2 ea TD DAILY 17. Lisinopril [Zestril 5 mg (*)] 5 mg PO DAILY 18. Metoprolol Tartrate [Lopressor 50 mg (*)] 75 mg PO BID 19. Potassium Cl [Klor-Con 20 meq (*)] 20 meq PO DAILY 20. Warfarin Sodium [Coumadin 5MG (*)] 4 mg PO ONCE@16 (INR 2.5-3.5) 21. diphenhydrAMINE [Benadryl 25 MG (*)] 25 mg PO HS PRN PENDING STUDIES/LABS: 1. CXR - 09/02/16 2. BMP, CBC, INR - 09/01/16 F/U APPOINTMENTS: - Dr. Satinder Rose - 09/02/16, 1:15 PM - Dr. Georgi Jimenez - to be arranged at surgical follow-up
--- NOTE | 2016-08-28 12:05 | PQFORM ---
PHYSICIAN QUERY FORM Needs Your Response This query form is being sent to you to assure this patient record is coded properly. Please respond to the question below: SYSTEMS SECURITY CONSULTANT QUESTION: Dear Dr. Rose, It is documented in the SOAP progress notes dated 08/16-08/24 that this patient has the diagnosis of 'Acute blood loss anemia'. Treated with 2 units of PRBC. After study, should the diagnosis of 'acute blood loss anemia' be included in the Discharge summary? Yes No Other more appropriate diagnosis ____x__ Unable to determine Thank you Pilar Caballero, TRAILER CHIEF HIM/Coding Dept [phone] same answer every case. Please stop these inqiries INSTRUCTIONS FOR RESPONSE: Answer question by clicking on the "Edit Document" button. Move cursor to area below the stars. When complete, hit "Save." Click on the "Sign" button, then click "Sign" again. Type in your PIN and hit "Enter." MTDD
--- NOTE | 2016-08-29 10:32 | PCMIDPN ---
Assessment/Plan: CORRECTION UTI does not meeting criteria for CAUTI Should just be coded and uncomplicated UTI. Objective: Vital Signs Temp Pulse Resp BP Pulse Ox 36.4 C 70 17 118/55 L 93 08/25/16 12:00 08/25/16 12:00 08/25/16 12:00 08/25/16 12:00 08/25/16 12:00 Laboratory Results 08/23/16 04:35 08/24/16 14:15 ICD10 Worksheet Patient Problems: Problems Problem Status Diagnosed Acute blood loss anemia Acute PFO (patent foramen ovale) Acute Postoperative atrial fibrillation Acute S/P mitral valve replacement with metallic valve Acute 08/15/16 S/P patent foramen ovale closure Acute 08/15/16 UTI (urinary tract infection), uncomplicated Acute Asthma Chronic Coronary artery disease Chronic HOCM (hypertrophic obstructive cardiomyopathy) Chronic Left bundle branch block (LBBB) Chronic Pacemaker Chronic S/P CABG x 2 Chronic 02/02/12 Severe mitral regurgitation Chronic 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
== END 2016-08-25 14:05 | DRG 217 ==
LOC: F2W 08:08 → EDSTATUS 08-15 07:15 → F2N 08-15 07:34 → F2W 08-18 14:10
PROVIDERS: ADMIT Thoracic Surgery (Cardiothoracic Vascular Surgery); ATTEND Internal Medicine Cardiovascular Disease
PROC: 4A023N8 Measurement of Cardiac Sampling and Pressure, Bilateral, Percutaneous Approach (ICD-10-PCS; 2016-08-14)
PROC: B2111ZZ Fluoroscopy of Multiple Coronary Arteries using Low Osmolar Contrast (ICD-10-PCS; 2016-08-14)
PROC: B2151ZZ Fluoroscopy of Left Heart using Low Osmolar Contrast (ICD-10-PCS; 2016-08-14)
PROC: 02RG0JZ Replacement of Mitral Valve with Synthetic Substitute, Open Approach (ICD-10-PCS; principal; 2016-08-15 07:46)
PROC: 5A1221Z Performance of Cardiac Output, Continuous (ICD-10-PCS; principal; 2016-08-15 07:46)
PROC: 30233N1 Transfusion of Nonautologous Red Blood Cells into Peripheral Vein, Percutaneous Approach (ICD-10-PCS; 2016-08-15 07:46)
DX: I08.0 Rheumatic disorders of both mitral and aortic valves (principal); I42.1 Obstructive hypertrophic cardiomyopathy; I48.0 Paroxysmal atrial fibrillation; N39.0 Urinary tract infection, site not specified; I10 Essential (primary) hypertension; E78.5 Hyperlipidemia, unspecified; H40.9 Unspecified glaucoma; J45.909 Unspecified asthma, uncomplicated; Z85.3 Personal history of malignant neoplasm of breast; Z88.0 Allergy status to penicillin; Z95.0 Presence of cardiac pacemaker; Z95.1 Presence of aortocoronary bypass graft
CPT/HCPCS: 82947-QW; 97116-GP; 97162-GP; 97166-GO; 97530-GO; 97535-GO; C1760; C1769; G8978-GP-CK; G8979-GP-CI; G8987-GO-CK; G8988-GO-CI; J0153; J0282; J0461; J0610; J0690; J1265; J1644; J1650; J1815; J1885; J2001; J2150; J2250; J2260; J2370; J2405; J2440; J2704; J2720; J2765; J2930; J2997; J3010; J3370; J7060; P9016; P9021; P9041; Q9967

== ENCOUNTER 2016-09-02 15:26 | Observation (INO) | payer OTHER ==
[2016-09-02] MEDS ORDERED: traMADol 50 MG TAB PO PRN (17:16)
[2016-09-02] MEDS ORDERED: ACETAMINOPHEN 325 MG TAB PO PRN (17:16)
[2016-09-02] MEDS ORDERED: PHYTONADIONE 1 MG in NS 50 ML IV ONE (17:20)
--- NOTE | 2016-09-02 17:49 | PDGENHP ---
History and Physical - Chief Complaint Cough/SOB - History of Present Illness h/o reoperation MV replacement with #23 St Beto mechanical prosthesis on seen in clinic today c/o SOB/cough and found to have large left pleural effusion on CXR. Pt also coagulopathic with INR > 4. Plan is for pt to be placed under observation status for vitamin K administration to improve coagulopathy and subsequent thoracentesis with Dr. Gipson on 09/03/16. Pt also c/ o dysuria with flank pain. History Information - Allergies/Home Medication List Allergies/Adverse Reactions: amoxicillin [Amoxicillin] Allergy (Intermediate, Verified 08/12/16 15:17) Hives cefaclor [From Ceclor] Allergy (Intermediate, Verified 08/12/16 15:17) Hives levofloxacin [From Levaquin] Allergy (Intermediate, Verified 08/12/16 15:17) Rash Sulfa (Sulfonamide Antibiotics) Allergy (Intermediate, Verified 08/12/16 15:17) Rash Home Medications: Albuterol [Proventil Inhaler HFA (*)] 1 puffs IH Q4 PRN 02/01/12 [Last Taken ] Aspirin [Aspirin 81mg (*)] 81 mg PO HS 02/01/12 [Last Taken 08/13/16] Fiber Cap 1 cap PO DAILY 02/01/12 [Last Taken 08/13/16] Loratadine [Claritin 10 mg] 10 mg PO DAILY 02/01/12 [Last Taken 08/13/16] Atorvastatin Calcium [Lipitor 40 mg (*)] 40 mg PO DAILY 11/19/15 [Last Taken ] Calcium Carb W/Vit D [Calcium Carb W/Vit D 500/200 (*)] 500 mg PO BID 11/19/15 [ Last Taken 08/13/16] Latanoprost 0.005% [Xalatan 0.005% (*)] 1 drops EACHEYE HS 11/19/15 [Last Taken 08/13/16] Multivitamins [Multivitamin (*)] 1 each PO BID 11/19/15 [Last Taken 08/13/16] Timolol 0.5% [TIMOPTIC 0.5% (*)] 1 drops EACHEYE DAILY 08/14/16 [Last Taken ] I have personally reviewed and updated: medical history, social history, surgical history - Past Medical History atrial fibrillation, asthma, coronary artery disease, cancer, glaucoma, hypertension, hyperlipidemia - Surgical History Reports: coronary bypass surgery (2012 (CABG x2)), mastectomy (Left (2000)), pacemaker/AICD (AV PPM (11/19/15 - [facility])) Additional surgical history: Septal myectomy, MV repair (2011 - [facility]). Reoperation MV replacement with #23 St Beto mechanical prosthesis - Social History Smoking Status: Never smoked Review of Systems Constitutional: Reports: malaise. Denies: chills, fever Cardiac: Denies: chest pain, lightheadedness, palpitations Respiratory: Reports: cough, shortness of breath Gastrointestinal: Denies: vomitting, nausea Genitourinary: Reports: dysuria Muscolosketal: Reports: no symptoms Skin: Reports: no symptoms Neurological: Reports: no symptoms Physical Exam Constitutional: no apparent distress, appears nourished, not in pain Eyes: anicteric sclera Ears, Nose, Mouth, Throat: moist mucous membranes, hearing normal, ears appear normal Cardiovascular: regular rate and rhythym Respiratory: no respiratory distress, reduced air movement (left ), No expiratory wheeze, No inspiratory crackles, No rhonchi Gastrointestinal: soft, non-tender abdomen, No distension Skin: warm, normal color Neurologic: AAOx3 Psychiatric: interacting appropriately, not anxious, not encephalopathic, thought process linear Lab Data & Imaging Review Visualized and Interpreted Chest x-ray results: Yes Chest X-Ray results: effusion (left) Assessment & Plan Assessment: Coagulopathy - Vit K 1 mg IV x1 - Recheck INR in AM Left effusion - Thoracentesis in 09/03/[address] Gipson Dysuria/Leukocytosis - U/A
[2016-09-02] MEDS ORDERED: ALBUTEROL 60 PUFFS/8 GM MDI IH PRN (20:14)
[2016-09-02] MEDS ORDERED: BISACODYL 10 MG SUPP PR PRN (20:14)
[2016-09-02] MEDS ORDERED: POLYETHYLENE GLYCOL 3350 17 GM PKT PO PRN (20:14)
[2016-09-02] MEDS: IPRATROPIUM/ALBUTEROL 3 ML DEYVIAL IH SCH (21:00)
[2016-09-02] MEDS: FLUTICASONE/SALMETER 500/50MCG DISKUS IH SCH (21:00)
[2016-09-02] MEDS: ONDANSETRON 4 MG/2 ML VIAL IVP PRN (21:48)
[2016-09-02] MEDS: ASPIRIN 81 MG CHEWABLE TAB PO SCH (21:51)
[2016-09-02] MEDS: ATORVASTATIN CALCIUM 40 MG TAB PO SCH (21:51)
[2016-09-02] MEDS: AMIODARONE HCL 200 MG TAB PO SCH (21:51)
[2016-09-02] MEDS: METOPROLOL TARTRATE 50 MG TAB PO SCH (21:52)
[2016-09-02] MEDS: CALCIUM CARB W/VIT D 500 MG TAB PO SCH (21:53)
[2016-09-02] MEDS: MULTIVITAMINS 1 EACH TAB PO SCH (21:53)
[2016-09-02] MEDS: diphenhydrAMINE 25 MG CAP PO PRN (21:53)
[2016-09-02] MEDS: MELATONIN 3 MG TAB PO SCH (21:54)
[2016-09-02] MEDS: LATANOPROST 0.005% 2.5 ML OPHT DROPS EACHEYE SCH (21:55)
[2016-09-02] MEDS: ACETAMINOPHEN 500 MG TAB PO SCH (21:58)
[2016-09-03 05:11] LABS: HEMATOCRIT 28.9 % (38.0-47.0); HEMOGLOBIN 9.6 g/dL (12.6-16.3); LIPEMIA HEMOLYSIS FLAG 80 (0-99); MEAN CELL HEMOGLOBIN 30.1 pg (27.9-34.1); MEAN CELL HEMOGLOBIN CONCENTR. 33.2 g/dL (32.4-36.7); MEAN CELL VOLUME 90.6 fL (81.5-99.8); PLATELET COUNT 639 10^3/uL (150-400); RED BLOOD CELL COUNT 3.19 10^6/uL (4.18-5.33); RED CELL DISTRIBUTION WIDTH 14.8 % (11.5-15.2)
[2016-09-03 05:17] LABS: ANION GAP 8 mEq/L (8-16); CALCIUM 8.6 mg/dL (8.5-10.4); CARBON DIOXIDE 27 mEq/l (22-31); CHLORIDE 97 mEq/L (97-110); CREATININE 0.7 mg/dL (0.6-1.0); GLOMERULAR FILTRATION RATE > 60; GLUCOSE 94 mg/dL (70-100); SODIUM 132 mEq/L (134-144)
[2016-09-03 05:28] LABS: INR 1.96 (0.83-1.16); PROTIME(PATIENT) 22.4 SEC (12.0-15.0)
[2016-09-03] MEDS: ACETAMINOPHEN 500 MG TAB PO SCH ×2 (09:35→13:31)
[2016-09-03] MEDS: CALCIUM CARB W/VIT D 500 MG TAB PO SCH ×2 (09:41→20:32)
[2016-09-03] MEDS: MULTIVITAMINS 1 EACH TAB PO SCH ×2 (09:41→20:33)
[2016-09-03] MEDS: LISINOPRIL 5 MG TAB PO SCH (09:41)
[2016-09-03] MEDS: AMIODARONE HCL 200 MG TAB PO SCH ×2 (09:41→20:33)
[2016-09-03] MEDS: LIDOCAINE 5% 1 EA PATCH TD SCH (09:42)
[2016-09-03] MEDS: METOPROLOL TARTRATE 50 MG TAB PO SCH ×2 (09:42→20:33)
[2016-09-03] MEDS: TIMOLOL 0.5% 15 ML OPHT.BTL EACHEYE SCH (09:44)
[2016-09-03] MEDS: IPRATROPIUM/ALBUTEROL 3 ML DEYVIAL IH SCH ×2 (10:35→20:47)
[2016-09-03] MEDS: FLUTICASONE/SALMETER 500/50MCG DISKUS IH SCH ×2 (10:36→20:47)
--- NOTE | 2016-09-03 11:13 | GCON ---
[f rep st] CONSULTATION CHEST CONSULTATION REASON FOR CONSULTATION: Pleural effusion. The patient is an extremely pleasant 70-year-old white female who has had a mitral valve replacement on 08/15/2016. She was seen in Dr. Rose's office yesterday, was found to be having increased weak ness, as well as an elevated INR. Subsequent chest x-ray revealed a large right pleural effusion, a nd she was subsequently admitted. Her INR this morning is 1.9. Currently, she feels somewhat mckenna r but is still mildly breathless. There is no chest pain, pleuritic-type chest pain, or angina equi valent. No fever or night sweats. PAST MEDICAL HISTORY: Significant for mitral valve replacement, hypertrophic cardiomyopathy, asthma , allergies, glaucoma, hyperlipidemia, hypertension, and distant history of breast cancer. PAST SURGICAL HISTORY: Includes a myomectomy, coronary bypass graft, mastectomy, pacemaker placemen t with AICD. MEDICATIONS: At home include Tylenol, [place], Mucomyst, Proventil, Dulcolax, fentanyl patch, Toradol , latanoprost, Reglan, metoprolol, Zofran, Protonix, MiraLAX, Senokot, Ultram, and Coumadin. PHYSICAL EXAM: VITAL SIGNS: Blood pressure 121/57, pulse 79, respirations 17, temperature 36.6, ox ygen saturation % on 3 L. GENERAL: She is a well-developed, well-nourished, elderly whit e female, who is resting comfortably, in no acute distress. HEENT: Eyes: PERRL, EOMI. Throat show s no erythema or tonsillar hypertrophy. NECK: Supple. There is no cervical adenopathy. HEART: R egular rate and rhythm, with a 3/6 systolic murmur, left sternal border, without radiation. LUNGS: Diminished breath sounds on the right. There are no E to A changes. There is a dullness to percus freida. ABDOMEN: Soft, nontender. Bowel sounds present in all 4 quadrants. EXTREMITIES: No clubbi ng, cyanosis or edema. LABORATORY DATA: White count 10, hemoglobin 9.6, hematocrit 28, platelet count 639. INR is 1.96. Sodium is 132, potassium 4.0, chloride 97, CO2 27, BUN 16, creatinine 0.7. Glucose is 94. Chest x- ray reveals a large right pleural effusion. IMPRESSION: Large right pleural effusion. PLAN: We will perform a thoracentesis later on today. /[id number]/MODL
--- NOTE | 2016-09-03 11:30 | SOAPPROG ---
SOAP Progress Note Assessment/Plan: Assessment: POD#19 Redo median sternotomy, MVR #23 StJude mechanical prosthesis , primary closure PFO, preservation patent LAD/Dx grafts and PPM leads. Rehabbing at [facility]. Tentative discharge from there planned this week. Admitted yest from clinic with sx pleural effusion, supratherapeutic INR and recurrent dysuria/flank pain. Postoperative left pleural effusion - Interval enlargement by xray. Now large. Thoracentesis delayed by INR > 4. Pulm to tap this afternoon. Presence of mechanical mitral valve - Antithrombotic prophylaxis with Coumadin. Target INR 2.5 (range 2.5-3.5). Adjunctive baby ASA for CAD. INR > 4 corrected w IV vit K. Now in acceptable range for thoracentesis. Plan resume coumadin this afternoon. Postop PAF - Intermittent. Adequate rate control on amiodarone and BB. [id number]- VASc score of 5. Antithrombotic prophylaxis as per MVR. Presence of PPM - Hx LBBB/brittany/presyncope. DDD mode. Lower rate 60. Predominant rhythm Apaced. Hx HOCM/IHSS - LVEDP 26. LVEF 70%. LVOT gradient normalized with MVR. Urinary irritability - s/p recent EColi UTI treated with nitrofurantoin. Await repeat UA. Plan: US guided left thoracentesis per pulm. Await UA results. Cont strict sternal precautions. 09/03/16 10:30 Subjective: Doing ok. Recent voids without discomfort. Still coughing a lot. Not much energy. Objective: Vital Signs Temp Pulse Resp BP Pulse Ox 36.6 C 68 17 121/57 H 93 09/03/16 07:32 09/03/16 10:36 09/03/16 07:32 09/03/16 07:32 09/03/16 10:36 Laboratory Results 09/03/16 04:30 09/03/16 04:30 09/02/16 09/03/16 09/04/16 05:59 05:59 05:59 Intake Total 420 Output Total 200 Balance 220 PT 22.4 SEC (12.0-15.0) H D 09/03/16 04:30 INR 1.96 (0.83-1.16) H 09/03/16 04:30 Feels ok. HR and BP controlled. Stable suppl O2 requirement. INR responsive to vit K. CXR neg for fxd hardware. Physical Exam - Physical Exam General Appearance: alert, no apparent distress Respiratory: decreased breath sounds (left) Cardiac/Chest: regular rate, rhythm, other (Sternal crepitus evident with cough. Upper and mid incision closed with thickened eschar. Localized erythema around these areas. No obvious fluctuance.) Abdomen: non-tender, soft Skin: warm/dry Extremities: other (no visible edema) ICD10 Worksheet Patient Problems: Problems Problem Status Onset Acute blood loss anemia Acute PFO (patent foramen ovale) Acute Postoperative atrial fibrillation Acute S/P mitral valve replacement with metallic valve Acute 08/15/16 S/P patent foramen ovale closure Acute 08/15/16 UTI (urinary tract infection), uncomplicated Acute Asthma Chronic Coronary artery disease Chronic HOCM (hypertrophic obstructive cardiomyopathy) Chronic Left bundle branch block (LBBB) Chronic Pacemaker Chronic S/P CABG x 2 Chronic 02/02/12 Severe mitral regurgitation Chronic 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
[2016-09-03 12:57] LABS: COLOR AMBER; LEUKOCYTE ESTERASE,URINE 3+ (NEGATIVE); NITRITE,URINE NEGATIVE (NEGATIVE)
[2016-09-03 13:37] LABS: BACTERIA 4+ /hpf (NONE SEEN); MUCUS 1+ /lpf (NONE-1+); WBC,URINE 50-182 /hpf (0-3)
[2016-09-03] MEDS: ONDANSETRON 4 MG/2 ML VIAL IVP PRN (13:58)
--- NOTE | 2016-09-03 14:09 | GPN ---
[f rep st] PROCEDURE NOTE PROCEDURE: Thoracentesis. INDICATION: Large left pleural effusion. ANESTHESIA: She received 1% lidocaine locally. Procedure was performed in the patient's room with ultrasound guidance. DESCRIPTION OF PROCEDURE: Patient was prepped and draped in the usual fashion. Via ultrasound guid ance, thoracentesis was performed via modified Seldinger technique. Approximately 1100 cc of bloody fluid was removed. The patient tolerated the procedure well. There were no apparent complications . Portable chest x-ray has been called for. /[id number]/MODL
[2016-09-03] MEDS ORDERED: ACETAMINOPHEN 500 MG TAB PO PRN (14:55)
[2016-09-03] MEDS: HYDROCODONE/APAP 5/325 TAB PO PRN ×2 (15:17→20:34)
[2016-09-03] MEDS ORDERED: WARFARIN SODIUM 2 MG TAB PO ONE (16:00)
[2016-09-03] MEDS: ASPIRIN 81 MG CHEWABLE TAB PO SCH (20:32)
[2016-09-03] MEDS: MELATONIN 3 MG TAB PO SCH (20:32)
[2016-09-03] MEDS: NITROFURANTOIN MACROBID 100 MG CAP PO SCH (20:32)
[2016-09-03] MEDS: ATORVASTATIN CALCIUM 40 MG TAB PO SCH (20:33)
[2016-09-03] MEDS: BENZONATATE 100 MG CAP PO PRN (20:46)
[2016-09-03] MEDS: diphenhydrAMINE 25 MG CAP PO PRN (20:46)
[2016-09-03] MEDS: LATANOPROST 0.005% 2.5 ML OPHT DROPS EACHEYE SCH (22:12)
[2016-09-04] MEDS: HYDROCODONE/APAP 5/325 TAB PO PRN ×2 (02:29→08:33)
[2016-09-04] MEDS: BENZONATATE 100 MG CAP PO PRN ×2 (02:31→08:35)
[2016-09-04 03:19] LABS: INR 1.7 (0.83-1.16)
[2016-09-04] MEDS: CALCIUM CARB W/VIT D 500 MG TAB PO SCH (08:36)
[2016-09-04] MEDS: METOPROLOL TARTRATE 50 MG TAB PO SCH (08:36)
[2016-09-04] MEDS: MULTIVITAMINS 1 EACH TAB PO SCH (08:37)
[2016-09-04] MEDS: NITROFURANTOIN MACROBID 100 MG CAP PO SCH (08:38)
[2016-09-04] MEDS: LISINOPRIL 5 MG TAB PO SCH (08:39)
[2016-09-04] MEDS: LIDOCAINE 5% 1 EA PATCH TD SCH (08:40)
[2016-09-04] MEDS: IPRATROPIUM/ALBUTEROL 3 ML DEYVIAL IH SCH (08:58)
[2016-09-04] MEDS: FLUTICASONE/SALMETER 500/50MCG DISKUS IH SCH (08:59)
[2016-09-04] MEDS ORDERED: AMIODARONE HCL 200 MG TAB PO SCH (09:00)
[2016-09-04] MEDS ORDERED: FUROSEMIDE 40 MG TAB PO SCH (09:00)
--- NOTE | 2016-09-04 09:20 | SOAPPROG ---
SOAP Progress Note Assessment/Plan: POD#20 Redo median sternotomy, MVR #23 StJude mechanical prosthesis, primary closure PFO, preservation patent LAD/Dx grafts and PPM leads. POD#1 left thoracentesis with 1.1 L fluid removed Postoperative left pleural effusion - s/p 1.1 L fluid removed 08/03/16 Presence of mechanical mitral valve - Antithrombotic prophylaxis with Coumadin. Target INR 2.5 (range 2.5-3.5). Coumadin clinic appt 09/05 setup with pharmacy as plan is home later today. Postop PAF - Intermittent. Adequate rate control on amiodarone and BB. [id number]- VASc score of 5. Antithrombotic prophylaxis as per MVR. Presence of PPM - Hx LBBB/brittany/presyncope. DDD mode. Lower rate 60. Predominant rhythm Apaced. Hx HOCM/IHSS - LVEDP 26. LVEF 70%. LVOT gradient normalized with MVR. Urinary irritability - +recurrent UTI. d/w ID and plan is for 7 day course of Macrobid d/t "allergies" to multiple classes of abx Disposition - Home today with health services 09/04/16 09:21 Subjective: Still coughing. Had a decent amount of sleep over night. Denies CP/SOB. Would like to go home today. Objective: Vital Signs Temp Pulse Resp BP Pulse Ox 36.6 C 82 16 125/60 H 93 09/04/16 08:00 09/04/16 08:55 09/04/16 08:55 09/04/16 08:00 09/04/16 08:00 Laboratory Results 09/03/16 04:30 09/03/16 04:30 09/03/16 09/04/16 09/05/16 05:59 05:59 05:59 Intake Total 420 1470 Output Total 200 1300 Balance 220 170 PT 20.0 SEC (12.0-15.0) H 09/04/16 02:45 INR 1.70 (0.83-1.16) H 09/04/16 02:45 Physical Exam - Physical Exam General Appearance: WD/WN, alert, no apparent distress EENT: No scleral icterus (R), No scleral icterus (L) Neck: normal inspection Respiratory: lungs clear, decreased breath sounds (Improvement on left side ), No respiratory distress Abdomen: non-tender, soft, No distended Skin: normal color, warm/dry Extremities: No pedal edema Neuro/Psych: no motor/sensory deficits, alert, normal mood/affect, oriented x 3 ICD10 Worksheet Patient Problems: Problems Problem Status Onset Pleural effusion, left Acute S/P thoracentesis Acute Supratherapeutic INR Acute Acute blood loss anemia Chronic Asthma Chronic Coronary artery disease Chronic HOCM (hypertrophic obstructive cardiomyopathy) Chronic Left bundle branch block (LBBB) Chronic Pacemaker Chronic Postoperative atrial fibrillation Chronic S/P CABG x 2 Chronic 02/02/12 S/P mitral valve replacement with metallic valve Chronic 08/15/16 S/P patent foramen ovale closure Chronic 08/15/16 Severe mitral regurgitation Chronic 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
[2016-09-04] MEDS: TIMOLOL 0.5% 15 ML OPHT.BTL EACHEYE SCH (10:30)
--- NOTE | 2016-09-04 11:34 | PDIAF ---
- Diagnosis Diagnosis: left pleural effusions s/p thoracentesis, coagulopathy Code Status: Full Code - Medication Management Discharge Medications: Medications to Continue on Transfer Aspirin [Aspirin 81mg (*)] 81 mg PO HS 02/01/12 [Last Taken 09/01/16] Loratadine [Claritin 10 mg] 10 mg PO DAILY 02/01/12 [Last Taken 09/02/16] Atorvastatin Calcium [Lipitor 40 mg (*)] 40 mg PO HS 11/19/15 [Last Taken ] Calcium Carb W/Vit D [Calcium Carb W/Vit D 500/200 (*)] 500 mg PO BID 11/19/15 [ Last Taken 09/02/16] Latanoprost 0.005% [Xalatan 0.005% (*)] 1 drops EACHEYE HS 11/19/15 [Last Taken 09/01/16] diphenhydrAMINE [Benadryl 25 MG (*)] 25 mg PO HS PRN #0 cap 08/25/16 [Last Taken Unknown] Acetaminophen [Tylenol ES 500 mg (*)] 1,000 mg PO TID 09/02/16 [Last Taken 09/02 14:00] Herbals/Supplements -Info Only 1 ea PO DAILY 09/02/16 [Last Taken 09/02/16] Melatonin [Melatonin 3 MG (*)] 3 mg PO HS 09/02/16 [Last Taken 09/01/16] Albuterol [Proventil Inhaler HFA (*)] 1 puffs IH Q4 PRN #1 mdi 09/04/16 [Last Taken Unknown] Amiodarone HCl [Pacerone (*)] 200 mg PO BID #60 tab 09/04/16 [Last Taken Unknown ] Benzonatate [Tessalon Pearles] 100 mg PO TID PRN #90 cap 09/04/16 [Last Taken Unknown] Fluticasone/Salmeter 500/50Mcg [Advair 500/50 (*)] 1 puffs IH BID #1 disk [Last Taken Unknown] Furosemide [Lasix 40 MG (*)] 40 mg PO DAILY #30 tab 09/04/16 [Last Taken Unknown ] Lidocaine 5% [Lidoderm 5% Patch (*)] 2 ea TD DAILY #60 patch 09/04/16 [Last Taken Unknown] Lisinopril [Zestril 5 mg (*)] 5 mg PO DAILY #30 tab 09/04/16 [Last Taken Unknown ] Melatonin [Melatonin 3 MG (*)] 3 mg PO HS #0 tab 09/04/16 [Last Taken Unknown] Metoprolol Tartrate [Lopressor 50 mg (*)] 50 mg PO BID #60 tab 09/04/16 [Last Taken Unknown] Multivitamins [Multivitamin (*)] 1 each PO BID #0 tab 09/04/16 [Last Taken Unknown] Nitrofurantoin Macrobid [Macrobid] 100 mg PO BID #18 cap 09/04/16 [Last Taken Unknown] Ondansetron HCl 4 mg PO Q6 PRN #30 tablet 09/04/16 [Last Taken Unknown] Timolol 0.5% [TIMOPTIC 0.5% (*)] 1 drops EACHEYE DAILY #0 opht.btl 09/04/16 [ Last Taken Unknown] Warfarin Sodium [Coumadin 4MG (*)] 4 mg PO DAILY16 #30 tab 09/04/16 [Last Taken Unknown] Foot Gatherer Antibiotics: Macrobid PO x 9 days - see medication list Discharge Medications: Refer to the Discharge Home Medication list for PRN reason. PICC Care - Routine: N/A - Orders Services needed: Home Care, Registered Nurse, Physical Therapy Home Care Face to Face: I certify that this patient was under my care and that I had the required [id number] encounter meeting the encounter requirements on the discharge day. My findings support the fact that the patient is homebound as defined in CMS Chapter 7 Medicare Benefits Manual 30.1.1, The condition of the patient is such that there exists a normal inability to leave home and consequently, leaving home would require a considerable and taxing effort. Oxygen: 1-3 L NC for O2 sats > 89% Diet Recommendation: cardiac -low fat low salt Diet Texture: Regular Texture Diet Weigh Patient: daily Coleman: No Wound Care Instructions: Wash wounds daily with soap and water and leave open to air. Sternal wound may be covered with dry gauze if peeling Dermabond results in skin being raw/irritated. Activity/Weight Bearing Restrictions: Continue sternal precautions until cleared by surgery. No lifting greater than 5 pounds. No push-pull type activities. Elevate lower-extremities. Additional: Please call [facility] and ask to speak to either Waleska Gutiérrez RN , oYselin KRISHNAN, or Kameron KRISHNAN if sternal wound begins to drains. The mid- portion of the wound is already red. Please measure vitals and weight daily. Call [facility] if: SBP is > 150 or <90. HR is >100 or <60. Daily weight gain is 2 lbs or greater or weekly weight gain is 5 lbs or greater - Labs/Radiology BMP Date: 09/08/16 (Fax to [facility], attention Waleska Gutiérrez RN ) CBC Date: 09/08/16 (Fax to [facility], attention Waleska Gutiérrez RN ) PT/INR Date: 09/05/16 (Fax to [facility], attention Dr. Georgi Jimenez ) Imaging Orders: CXR 09/09/16 to be done at [facility] as per Rx - Follow Up Care Current Providers and Referrals: Curry Boogie MD [Primary Care Provider] - Satinder Rose DO [Doctor of Osteopathy] - 09/09/16 1:15 pm ()
[2016-09-04 15:46] VITALS: BP 119/60; PULSE 71; RESP 17; TEMP 97.8; O2SAT 90
[2016-09-04] MEDS ORDERED: WARFARIN SODIUM 2 MG TAB PO ONE (16:00)
[2016-09-04] MEDS ORDERED: WARFARIN SODIUM 4 MG TAB PO SCH (16:00)
[2016-09-04] MEDS ORDERED: WARFARIN SODIUM 5 MG TAB PO ONE (16:00)
== END 2016-09-04 14:45 | disposition home health service (06) ==
LOC: F2W 17:28
PROVIDERS: ADMIT Thoracic Surgery (Cardiothoracic Vascular Surgery); ATTEND Thoracic Surgery (Cardiothoracic Vascular Surgery)
PROC: 0W9B3ZZ Drainage of Left Pleural Cavity, Percutaneous Approach (ICD-10-PCS; principal; 2016-09-02)
DX: J90 Pleural effusion, not elsewhere classified (principal); E78.5 Hyperlipidemia, unspecified; I10 Essential (primary) hypertension; I48.91 Unspecified atrial fibrillation; Z95.2 Presence of prosthetic heart valve; Z95.1 Presence of aortocoronary bypass graft; Z95.0 Presence of cardiac pacemaker; Z85.3 Personal history of malignant neoplasm of breast; J45.909 Unspecified asthma, uncomplicated
CPT/HCPCS: 32555; 71010; 76604; 97161; G0378; G0379; G8978; G8979; J2405; J3430

== ENCOUNTER → 2016-09-11 | Outpatient (CLI) | payer OTHER | LOC: CIMAGING 11:16 | PROVIDERS: ATTEND Thoracic Surgery (Cardiothoracic Vascular Surgery) | DX: Z95.2 Presence of prosthetic heart valve (principal); Z98.890 Other specified postprocedural states; I25.10 Atherosclerotic heart disease of native coronary artery without angina pectoris; J90 Pleural effusion, not elsewhere classified; J98.11 Atelectasis; I51.7 Cardiomegaly; Z95.0 Presence of cardiac pacemaker; Z79.01 Long term (current) use of anticoagulants | CPT/HCPCS: 71020-PO ==

== ENCOUNTER 2016-09-13 09:23 | Emergency (ER) | payer OTHER ==
[2016-09-13 09:42] VITALS: TEMP 96.3
[2016-09-13] MEDS ORDERED: HYDROmorphONE/DILAUDID 1 MG/ML SYR IVP ONE (09:50)
[2016-09-13] MEDS ORDERED: METOCLOPRAMIDE 10 MG/2 ML VIAL IVP ONE (09:50)
[2016-09-13] MEDS ORDERED: ONDANSETRON 4 MG/2 ML VIAL IVP ONE (09:50)
--- NOTE | 2016-09-13 09:56 | UCPHY ---
H & P Patient Type: Established Chief Complaint Nursing Narrative: french left frontal head area since 2 am . Denies slurred speech arm or leg issues. A+Ox4. Had HOCM surgery Aug 15 at [facility] Konstantin Rose Time Seen by Provider: 09/13/16 09:37 HPI/ROS: CHIEF COMPLAINT: Headache HISTORY OF PRESENT ILLNESS: The patient is a 70-year-old female on Coumadin complaining of a headache that began around 2:00 a.m. the patient has a history of coronary artery disease status post CABG in 2011, pacemaker/AICD placement 2015 as well as HCOM status post myomectomy and mitral valve repair in 2011 and again on August 15 of this year with mechanical mitral valve placement. She also was admitted to the hospital 10 days ago for thoracentesis. She states that she is recovering well from all these procedures a gradually getting stronger. Last night however around 2:00 a.m. she developed a headache left-sided frontal. She states the last time she had headache like this was a sinus infection. She does not typically get migraines or headaches. It was gradual in onset in increasing. No vision changes although the light does bother her eyes this is baseline. No fevers. No trauma. Her INR was checked 3 days ago and was 2.5. No paresthesias numbness or focal weakness. REVIEW OF SYSTEMS: Constitutional: denies: chills, fever, recent illness, recent injury EENTM: denies: blurred vision, double vision, nose congestion Respiratory: denies: cough, shortness of breath Cardiac: See HPI Gastrointestinal/Abdominal: denies: abdominal pain, diarrhea, nausea, vomiting, blood streaked stools Genitourinary: denies: dysuria, frequency, hematuria, pain Musculoskeletal: denies: joint pain, muscle pain Skin: denies: lesions, rash, jaundice, bruising Neurological: See HPI Hematologic/Lymphatic: denies: blood clots, easy bleeding, easy bruising Immunologic/allergic: denies: HIV/AIDS, transplant EXAM: GENERAL: Well-appearing, well-nourished and in no acute distress. HEAD: Atraumatic, normocephalic. EYES: Pupils equal round and reactive to light, extraocular movements intact, sclera anicteric, conjunctiva are normal. ENT: TMs normal, nares patent, oropharynx clear without exudates. Moist mucous membranes. NECK: Normal range of motion, supple without lymphadenopathy or JVD. LUNGS: Breath sounds clear to auscultation bilaterally and equal. No wheezes rales or rhonchi. HEART: Surgical wound healing, Regular rate and rhythm without murmurs, rubs or gallops. ABDOMEN: Soft, nontender, normoactive bowel sounds. No guarding, no rebound. No masses appreciated. BACK: No CVA tenderness, no spinal tenderness, step-offs or deformities EXTREMITIES: Normal range of motion, no pitting or edema. No clubbing or cyanosis. NEUROLOGICAL: Cranial nerves II through XII grossly intact. Normal speech, normal gait. 5/5 strength, normal movement in all extremities, normal sensation PSYCH: Normal mood, normal affect. SKIN: Warm, dry, normal turgor, no visible rashes or lesions. Source: Patient Exam Limitations: No limitations - Medical/Surgical History Hx Asthma: Yes Hx Chronic Respiratory Disease: No Hx Diabetes: No Hx Cardiac Disease: Yes Hx Renal Disease: No Hx Cirrhosis: No Hx Alcoholism: No Hx HIV/AIDS: No Hx Splenectomy or Spleen Trauma: No Other PMH: asthma, L breast cx w/ mastectomy w/ nodes, L5-S1 fusion, frequent UTIs, glaucoma, hypertrophic obstructive cardiomyopathy, mechanical mitral valve - Family History Significant Family History: No pertinent family hx - Social History Smoking Status: Never smoked Alcohol Use: Sober Drug Use: None Constitutional: Initial Vital Signs Temperature (C) 35.7 C L 09/13/16 09:37 Heart Rate 78 09/13/16 09:37 Respiratory Rate 20 09/13/16 09:37 Blood Pressure 145/49 H 09/13/16 09:37 O2 Sat (%) 99 09/13/16 09:37 O2 Delivery Mode Nasal Cannula O2 (L/minute) 2 Allergies/Adverse Reactions: amoxicillin [Amoxicillin] Allergy (Intermediate, Verified 09/13/16 09:42) Hives cefaclor [From Ceclor] Allergy (Intermediate, Verified 09/13/16 09:42) Hives levofloxacin [From Levaquin] Allergy (Intermediate, Verified 09/13/16 09:42) Rash Sulfa (Sulfonamide Antibiotics) Allergy (Intermediate, Verified 09/13/16 09:42) Rash Home Medications: Medication Instructions Recorded Aspirin [Aspirin 81mg (*)] 81 mg PO HS 02/01/12 Loratadine [Claritin 10 mg] 10 mg PO DAILY 02/01/12 Atorvastatin Calcium [Lipitor 40 40 mg PO HS 11/19/15 mg (*)] Calcium Carb W/Vit D [Calcium Carb 500 mg PO BID 11/19/15 W/Vit D 500/200 (*)] Latanoprost 0.005% [Xalatan 0.005% 1 drops EACHEYE HS 11/19/15 (*)] diphenhydrAMINE [Benadryl 25 MG 25 mg PO HS PRN #0 cap 08/25/16 (*)] Acetaminophen [Tylenol ES 500 mg 1,000 mg PO TID 09/02/16 (*)] Herbals/Supplements -Info Only 1 ea PO DAILY 09/02/16 Albuterol [Proventil Inhaler HFA 1 puffs IH Q4 PRN #1 mdi 09/04/16 (*)] Amiodarone HCl [Pacerone (*)] 200 mg PO BID #60 tab 09/04/16 Benzonatate [Tessalon Pearles] 100 mg PO TID PRN #90 cap 09/04/16 Fluticasone/Salmeter 500/50Mcg 1 puffs IH BID #1 disk 09/04/16 [Advair 500/50 (*)] Furosemide [Lasix 40 MG (*)] 40 mg PO DAILY #30 tab 09/04/16 Lidocaine 5% [Lidoderm 5% Patch 2 ea TD DAILY #60 patch 09/04/16 (*)] Lisinopril [Zestril 5 mg (*)] 5 mg PO DAILY #30 tab 09/04/16 Melatonin [Melatonin 3 MG (*)] 3 mg PO HS #0 tab 09/04/16 Metoprolol Tartrate [Lopressor 50 50 mg PO BID #60 tab 09/04/16 mg (*)] Multivitamins [Multivitamin (*)] 1 each PO BID #0 tab 09/04/16 Ondansetron HCl 4 mg PO Q6 PRN #30 tablet 09/04/16 Timolol 0.5% [TIMOPTIC 0.5% (*)] 1 drops EACHEYE DAILY #0 opht.btl 09/04/16 Warfarin Sodium [Coumadin 4MG (*)] 4 mg PO DAILY16 #30 tab 09/04/16 AZITHROMYCIN [Z-PACK] 250 mg PO DAILY #4 tab 09/13/16 Hydrocodone/APAP 5/325 [[place] 1 - 2 each PO Q4 PRN #14 tab 09/13/16 5/325] Medical Decision Making - Diagnostics Imaging: Results: CT scan of the head was obtained. The results of the study are negative for acute intracranial abnormality, left-sided sinusitis. The study was read by Dr. Muniz. I viewed the images myself on the PACS system. ED Course/Re-evaluation: 11:20 a.m. we discussed the patient's CT results. She is relieved. She states that this is exactly what happened last time she had a sinus headache. I will start her on azithromycin and she is asking for some more pain medication. I will start her on a dose of Toradol. Differential Diagnosis: Partial list of the Differential diagnosis considered include but were not limited to; tension headache, sinusitis, migraine and although unlikely based on the history and physical exam, I also considered hemorrhage, infection, meningitis, abscess. I discussed these differential diagnoses and the plan with the patient as well as the usual and expected course. The patient understands that the diagnosis is provisional and that in medicine we are not always correct and that further workup is often warranted. Usual and customary warnings were given. All of the patient's questions were answered. The patient was instructed to return to the emergency department should the symptoms at all worsen or return, otherwise to followup with the physician as we discussed. - Data Points Laboratory Results: Laboratory Results 09/13/16 10:17 09/13/16 10:17 09/13/16 09/13/16 09/13/16 10:17 10: 10: WBC 12.07 10^3/uL H 10^3/uL (3.80-9.50) RBC 3.24 10^6/uL L 10^6/uL (4.18-5.33) Hgb 9.5 g/dL L g/dL (12.6-16.3) Hct 28.9 % L % (38.0-47.0) MCV 89.2 fL fL (81.5-99.8) MCH 29.3 pg pg (27.9-34.1) MCHC 32.9 g/dL g/dL (32.4-36.7) RDW 15.4 % H % (11.5-15.2) Plt Count 505 10^3/uL H D 10^3/uL (150-400) MPV 8.6 fL L fL (8.7-11.7) Neut % (Auto) 77.8 % H % (39.3-74.2) Lymph % (Auto) 11.3 % L % (15.0-45.0) Gonzales % (Auto) 6.1 % % (4.5-13.0) Eos % (Auto) 3.4 % % (0.6-7.6) Baso % (Auto) 0.6 % % (0.3-1.7) Nucleat RBC Rel Count 0.0 % % (0.0-0.2) Absolute Neuts (auto) 9.39 10^3/uL H 10^3/uL (1.70-6.50) Absolute Lymphs (auto) 1.36 10^3/uL 10^3/uL (1.00-3.00) Absolute Monos (auto) 0.74 10^3/uL 10^3/uL (0.30-0.80) Absolute Eos (auto) 0.41 10^3/uL H 10^3/uL (0.03-0.40) Absolute Basos (auto) 0.07 10^3/uL 10^3/uL (0.02-0.10) Absolute Nucleated RBC 0.00 10^3/uL 10^3/uL (0-0.01) Immature Gran % 0.8 % % (0.0-1.1) Immature Gran # 0.10 10^3/uL 10^3/uL (0.00-0.10) PT 29.1 SEC H SEC (12.0-15.0) INR 2.76 H (0.83-1.16) Sodium 133 mEq/L L mEq/L (134-144) Potassium 4.2 mEq/L mEq/L (3.5-5.2) Chloride 97 mEq/L mEq/L (97-110) Carbon Dioxide 28 mEq/l mEq/l (22-31) Anion Gap 8 mEq/L mEq/L (8-16) BUN 14 mg/dL mg/dL (7-23) Creatinine 0.5 mg/dL L mg/dL (0.6-1.0) Estimated GFR > 60 Glucose 105 mg/dL H mg/dL (70-100) Calcium 8.3 mg/dL L mg/dL (8.5-10.4) Medications Given: Discontinued Medications Azithromycin (Zithromax) 500 mg PO EDNOW ONE PRN Reason: Protocol Stop: 09/13/16 11:20 Last Admin: 09/13/16 11:45 Dose: 500 mg Hydromorphone HCl (Dilaudid) 0.5 mg IVP EDNOW ONE Stop: 09/13/16 09:51 Last Admin: 09/13/16 10:20 Dose: 0.5 mg Ketorolac Tromethamine (Toradol) 30 mg IVP EDNOW ONE Stop: 09/13/16 11:20 Last Admin: 09/13/16 11:45 Dose: 30 mg Metoclopramide HCl (Reglan Injection) 10 mg IVP EDNOW ONE Stop: 09/13/16 09:51 Last Admin: 09/13/16 10:20 Dose: 10 mg Ondansetron HCl (Zofran) 4 mg IVP EDNOW ONE Stop: 09/13/16 09:51 Last Admin: 09/13/16 10:20 Dose: 4 mg Departure - Departure Disposition: Home, Routine, Self-Care Clinical Impression: Sinusitis Qualifiers: Sinusitis location: frontal Chronicity: acute Recurrence: non-recurrent Qualified Code(s): J01.10 - Acute frontal sinusitis, unspecified Condition: Fair Instructions: Sinusitis (ED) Referrals: Satinder Rose DO [Primary Care Provider] - As per Instructions Prescriptions: AZITHROMYCIN [Z-PACK] 250 mg PO DAILY #4 tab Hydrocodone/APAP 5/325 [[place] 5/325] 1 - 2 each PO Q4 PRN #14 tab PRN Reason: Pain, Mild - PQRS PQRS Measurement: 134: Depression screening and followup, PRIME MD-PHQ2 (12 years and older) Over the last 2 weeks, how often have you been bothered by any of the following problems? 1. Feeling down, depressed, or hopeless? 2. Little interest or pleasure in doing things? Patient answered no to both 1 and 2 130: Documentation of medications. Reviewed all patient medications, doses, route and frequency. 226: Do you smoke? No. 47: 65 and older: Advanced care planning. Patient designates surrogate decision maker as spouse . Patient has advanced directive. 51: 18 years old and older with diagnosis of COPD, spirometry performance. Spirometry not performed; equipment not available. 52: 18 years old and older with COPD and symptoms of COPD or FEV1<60% predicted prescribed a B Agonist. Not applicable
[2016-09-13 10:32] LABS: % IMMATURE GRANULYOCYTES 0.8 % (0.0-1.1); ADD DIFF? NO; ADD MORPH? NO; ADD SCAN? NO; ATYPICAL LYMPHOCYTE FLAG 20 (0-99); FRAGMENT RBC FLAG 0 (0-99); HEMATOCRIT 28.9 % (38.0-47.0); HEMOGLOBIN 9.5 g/dL (12.6-16.3); LEFT SHIFT FLG 0 (0-99); LIPEMIA HEMOLYSIS FLAG 80 (0-99); MEAN CELL HEMOGLOBIN 29.3 pg (27.9-34.1); MEAN CELL HEMOGLOBIN CONCENTR. 32.9 g/dL (32.4-36.7); MEAN CELL VOLUME 89.2 fL (81.5-99.8); MEAN PLATELET VOLUME 8.6 fL (8.7-11.7); PLATELET CLUMPS FLAG 20 (0-99); PLATELET COUNT 505 10^3/uL (150-400); RED BLOOD CELL COUNT 3.24 10^6/uL (4.18-5.33); RED CELL DISTRIBUTION WIDTH 15.4 % (11.5-15.2)
[2016-09-13 10:44] LABS: INR 2.76 (0.83-1.16); PROTIME(PATIENT) 29.1 SEC (12.0-15.0)
[2016-09-13 10:47] LABS: ANION GAP 8 mEq/L (8-16); CALCIUM 8.3 mg/dL (8.5-10.4); CARBON DIOXIDE 28 mEq/l (22-31); CHLORIDE 97 mEq/L (97-110); CREATININE 0.5 mg/dL (0.6-1.0); GLOMERULAR FILTRATION RATE > 60; GLUCOSE 105 mg/dL (70-100); POTASSIUM 4.2 mEq/L (3.5-5.2); SODIUM 133 mEq/L (134-144)
[2016-09-13] MEDS ORDERED: KETOROLAC 30 MG/1 ML SDV IVP ONE (11:19)
[2016-09-13] MEDS ORDERED: AZITHROMYCIN 250 MG TAB PO ONE (11:19)
[2016-09-13 12:24] VITALS: BP 113/56; PULSE 82; RESP 16
[2016-09-13 12:25] VITALS: O2SAT 99
== END 2016-09-13 12:00 | disposition home or self-care (01) ==
LOC: CED 09:23
DX: J01.10 Acute frontal sinusitis, unspecified (principal); I25.10 Atherosclerotic heart disease of native coronary artery without angina pectoris; Z98.890 Other specified postprocedural states; I42.1 Obstructive hypertrophic cardiomyopathy; Z85.3 Personal history of malignant neoplasm of breast; Z79.01 Long term (current) use of anticoagulants; Z95.0 Presence of cardiac pacemaker; Z95.2 Presence of prosthetic heart valve; Z95.1 Presence of aortocoronary bypass graft; Z90.12 Acquired absence of left breast and nipple
CPT/HCPCS: 70450; 96374; 96375; G0463; J1170; J1885; J2405; J2765; 80048-PO; 85025-PO; 85610-PO

== ENCOUNTER → 2016-09-15 | Outpatient (CLI) | payer OTHER | LOC: BHFA 16:00 | PROVIDERS: ATTEND Internal Medicine Cardiovascular Disease | DX: R00.2 Palpitations (principal) ==

== ENCOUNTER → 2016-09-23 | Outpatient (CLI) | payer OTHER | LOC: FIMAGING 12:03 | PROVIDERS: ATTEND Thoracic Surgery (Cardiothoracic Vascular Surgery) | DX: Z48.812 Encounter for surgical aftercare following surgery on the circulatory system (principal); J90 Pleural effusion, not elsewhere classified; Z95.4 Presence of other heart-valve replacement ==

== ENCOUNTER → 2016-12-18 | Outpatient (CLI) | payer OTHER | LOC: BHFA 15:00 | PROVIDERS: ATTEND Internal Medicine Interventional Cardiology | DX: I48.91 Unspecified atrial fibrillation (principal); I42.9 Cardiomyopathy, unspecified; Z79.01 Long term (current) use of anticoagulants ==

== ENCOUNTER → 2017-04-02 | Outpatient (CLI) | payer OTHER | LOC: CIMAGING 14:41 | PROVIDERS: ATTEND Obstetrics & Gynecology | DX: Z12.31 Encounter for screening mammogram for malignant neoplasm of breast (principal); Z90.12 Acquired absence of left breast and nipple | CPT/HCPCS: G0202-52 ==

== ENCOUNTER → 2017-10-06 | Outpatient (CLI) | payer OTHER | LOC: CIMAGING 15:36 | PROVIDERS: ATTEND Family Medicine | DX: J98.4 Other disorders of lung (principal); I51.7 Cardiomegaly | CPT/HCPCS: 71046-PO ==

== ENCOUNTER → 2017-12-24 | Outpatient (CLI) | payer OTHER | LOC: CIMAGING 14:48 | PROVIDERS: ATTEND Internal Medicine Pulmonary Disease | DX: Z09 Encounter for follow-up examination after completed treatment for conditions other than malignant neoplasm (principal); J45.909 Unspecified asthma, uncomplicated; R06.00 Dyspnea, unspecified; R53.83 Other fatigue; G47.30 Sleep apnea, unspecified; Z98.890 Other specified postprocedural states | CPT/HCPCS: 71046-PO ==

== ENCOUNTER → 2018-05-28 | Outpatient (CLI) | payer OTHER | LOC: CIMAGING 14:33 | PROVIDERS: ATTEND Family Medicine | DX: Z12.31 Encounter for screening mammogram for malignant neoplasm of breast (principal); Z85.3 Personal history of malignant neoplasm of breast; Z90.12 Acquired absence of left breast and nipple ==